=== PATIENT | female | born 1940 | race Caucasian/White ===

== ENCOUNTER → 2016-12-15 | Outpatient (CLI) | payer BC ==
[~2016-12-15] MED LIST: IOPAMIDOL (ISOVUE 370) 100 ML BTL IV ONE
== END ==
LOC: BMCIMAGING 10:25
PROVIDERS: ATTEND Family Medicine
DX: J40 Bronchitis, not specified as acute or chronic (principal); I25.10 Atherosclerotic heart disease of native coronary artery without angina pectoris; Z86.718 Personal history of other venous thrombosis and embolism
CPT/HCPCS: Q9967

== ENCOUNTER → 2016-12-26 | Outpatient (CLI) | payer BC | LOC: BMCIMAGING 11:41 | PROVIDERS: ATTEND Family Medicine | DX: J40 Bronchitis, not specified as acute or chronic (principal); I51.7 Cardiomegaly ==

== ENCOUNTER 2017-02-20 06:42 | Inpatient (IN) | payer BC ==
--- NOTE | 2017-02-20 07:06 | EDPHY ---
H & P Stated Complaint: abd pain HPI/ROS: CHIEF COMPLAINT: Abdominal pain HISTORY OF PRESENT ILLNESS: The patient is an anticoagulated 76 y/o female complaining of midabdominal pain that woke her from sleep early this morning about 5 hours ago. She has a history of significant coronary artery disease status post stenting and CABG. She developed polyuria and dysuria and was diagnosed with a UTI and started on Macrobid 3 days ago. She has used this antibiotic before without issue. She describes her pain as sharp and says it was initially constant, but then became intermittent. The pain is nonradiating. No prior similar sx. She denies chest pain, dyspnea, constipation, nausea, vomiting, fever, diarrhea. She has never had a colonoscopy. REVIEW OF SYSTEMS: Constitutional: No fever, no chills Eyes: No visual changes ENT: No sore throat Respiratory: No cough, no shortness of breath Cardiac: No chest pain Gastrointestinal: see HPI Genitourinary: No hematuria, no dysuria now Musculoskeletal: No leg pain or swelling Skin: No rash Neurological: No headache, no numbness, no weakness Psychiatric: No depression - Personal History Current Tetanus/Diphtheria Vaccine: Unsure Current Tetanus Diphtheria and Acellular Pertussis (TDAP): Unsure Tetanus Vaccine Date: 2003 - Medical/Surgical History PMH: PMH includes: 1. CAD status post 4 stents between [id number], CABG x4 in 2013 2. Pneumonia 3. UTIs 4. Appendectomy 5. Bilateral knee arthroscopy 6. DVT left leg - has been on Eliquis for 1 month Mechanic Chief: Dr. Vargas Prior medical records reviewed including admission 12/10/13 for chest pain Hx Asthma: No Hx Chronic Respiratory Disease: No Hx Diabetes: No Hx Cardiac Disease: Yes Hx Renal Disease: No Hx Cirrhosis: No Hx Alcoholism: No Hx HIV/AIDS: No Hx Splenectomy or Spleen Trauma: No Other PMH: Stents x4, HTN, CABG, L leg blood clot, - Social History Smoking Status: Never smoked Additional Social History: at bedside. Nonsmoker. - Physical Exam Exam: General Appearance: Alert, no distress Eyes: Pupils equal and round, no conjunctival pallor or injection ENT, Mouth: Mucous membranes moist Neck: Normal inspection Respiratory: Lungs are clear to auscultation Cardiovascular: Regular rate and rhythm Gastrointestinal: Abdomen is soft and diffusely tender across her lower abdomen. Neurological: A&O, nonfocal, normal gait Skin: Warm and dry, no rash Extremities: Nontender, no pedal edema Psychiatric: Mood and affect normal Constitutional: Initial Vital Signs Temperature (C) 36.8 C 02/20/17 06:49 Heart Rate 80 02/20/17 06:49 Respiratory Rate 16 02/20/17 06:49 Blood Pressure 172/95 H 02/20/17 06:49 O2 Sat (%) 90 L 02/20/17 06:49 O2 Delivery Mode Room Air Allergies/Adverse Reactions: Penicillins Allergy (Intermediate, Verified 02/20/17 06:46) Rash Sulfa (Sulfonamide Antibiotics) Allergy (Verified 02/20/17 06:46) Home Medications: Medication Instructions Recorded Metoprolol Tartrate [Lopressor 25 12.5 mg PO BID #30 tab 12/16/13 mg (*)] Apixaban [Eliquis] 5 mg PO BID 02/20/17 Nitrofurantoin Monohyd/M-Cryst 100 mg PO BID 02/20/17 [Macrobid 100 mg Capsule] Medical Decision Making - Diagnostics Imaging Results: Imaging Impressions Abdomen CT 02/20/17 07:16 Impression: 1. Closed loop small bowel obstruction or internal hernia in the left lower quadrant of the abdomen/pelvis within the distal ileum. 2. Abnormal endometrial thickening up to 12 mm. Consider ultrasound pelvis and endometrial biopsy when the patient's medical condition permits. 3. Atherosclerotic aorta without aneurysm. 4. L4-L5 degenerative lumbar spine and severe stenosis with degenerative anterolisthesis. Findings and recommendations discussed with Emergency Department physician, Gale Mann at 0900 hour, 02/20/2017. Final report concurs with initial preliminary interpretation. Imaging: Discussed imaging studies w/ call worker Radiologist, I viewed and interpreted images myself ED Course/Re-evaluation: This is a well-appearing, stoic 76 y/o female with a significant cardiac history and recently diagnosed UTI who presents with a 5-hour history of moderate abdominal pain. She has been on Macrobid for 3 days. She has diffuse lower abdominal tenderness elicited with palpation, but otherwise her exam is unremarkable. Presentation is suspicious for diverticulitis, so we will proceed with an abdominal CT. IV established, basic labs drawn, UA ordered. 6mg IV morphine and 4mg IV Zofran ordered as needed for pain. CT shows small bowel obstruction. Patient will require admission. No vomiting so an NG tube was not placed. The hospitalist was consulted for admission. Dr. Sauer accepts admission. Differential Diagnosis: Differential diagnosis includes though it is not limited to appendicitis, cholecystitis, diverticulitis, pyelonephritis, bowel perforation, small bowel obstruction. - Data Points Laboratory Results: Laboratory Results 02/20/17 07:00 02/20/17 07:00 02/20/17 02/20/17 07:00 07:00 WBC 6.05 10^3/uL 10^3/uL (3.80-9.50) RBC 5.41 10^6/uL H 10^6/uL (4.18-5.33) Hgb 14.7 g/dL g/dL (12.6-16.3) Hct 45.3 % % (38.0-47.0) MCV 83.7 fL fL (81.5-99.8) MCH 27.2 pg L pg (27.9-34.1) MCHC 32.5 g/dL g/dL (32.4-36.7) RDW 14.4 % % (11.5-15.2) Plt Count 239 10^3/uL 10^3/uL (150-400) MPV 10.2 fL fL (8.7-11.7) Neut % (Auto) 52.1 % % (39.3-74.2) Lymph % (Auto) 30.6 % % (15.0-45.0) Ada % (Auto) 10.4 % % (4.5-13.0) Eos % (Auto) 5.8 % % (0.6-7.6) Baso % (Auto) 0.8 % % (0.3-1.7) Nucleat RBC Rel Count 0.0 % % (0.0-0.2) Absolute Neuts (auto) 3.15 10^3/uL 10^3/uL (1.70-6.50) Absolute Lymphs (auto) 1.85 10^3/uL 10^3/uL (1.00-3.00) Absolute Monos (auto) 0.63 10^3/uL 10^3/uL (0.30-0.80) Absolute Eos (auto) 0.35 10^3/uL 10^3/uL (0.03-0.40) Absolute Basos (auto) 0.05 10^3/uL 10^3/uL (0.02-0.10) Absolute Nucleated RBC 0.00 10^3/uL 10^3/uL (0-0.01) Immature Gran % 0.3 % % (0.0-1.1) Immature Gran # 0.02 10^3/uL 10^3/uL (0.00-0.10) Sodium 143 mEq/L mEq/L (134-144) Potassium 4.4 mEq/L mEq/L (3.5-5.2) Chloride 111 mEq/L H mEq/L (97-110) Carbon Dioxide 21 mEq/l L mEq/l (22-31) Anion Gap 11 mEq/L mEq/L (8-16) BUN 11 mg/dL mg/dL (7-23) Creatinine 0.9 mg/dL mg/dL (0.6-1.0) Estimated GFR > 60 Glucose 94 mg/dL mg/dL (70-100) Calcium 9.6 mg/dL mg/dL (8.5-10.4) Medications Given: Discontinued Medications Sodium Chloride (Ns) 1,000 mls @ 0 mls/hr IV ONCE ONE; Wide Open PRN Reason: Protocol Stop: 02/20/17 09:11 Last Admin: 02/20/17 09:15 Dose: 1,000 mls Departure - Departure Disposition: [facility] Inpatient Acute Clinical Impression: Small bowel obstruction Condition: Fair Report Scribed for: Gale Mann Report Scribed by: Reanna Estevez Date of Report: 02/20/17 Time of Report: 06:58 Physician Review and Approval Statement: 02/20/17 06:58 Portions of this note were transcribed by a medical claims assistant. I personally performed a history, physical exam, medical decision making, and confirmed accuracy of information the transcribed note.
[2017-02-20 07:39] LABS: % IMMATURE GRANULYOCYTES 0.3 % (0.0-1.1); ABSOLUTE IMMATURE GRANULOCYTES 0.02 10^3/uL (0.00-0.10); ADD DIFF? NO; ADD MORPH? NO; ADD SCAN? NO; ATYPICAL LYMPHOCYTE FLAG 0 (0-99); FRAGMENT RBC FLAG 0 (0-99); HEMATOCRIT 45.3 % (38.0-47.0); HEMOGLOBIN 14.7 g/dL (12.6-16.3); LEFT SHIFT FLG 0 (0-99); LIPEMIA HEMOLYSIS FLAG 80 (0-99); MEAN CELL HEMOGLOBIN 27.2 pg (27.9-34.1); MEAN CELL HEMOGLOBIN CONCENTR. 32.5 g/dL (32.4-36.7); MEAN CELL VOLUME 83.7 fL (81.5-99.8); MEAN PLATELET VOLUME 10.2 fL (8.7-11.7); PLATELET CLUMPS FLAG 10 (0-99); PLATELET COUNT 239 10^3/uL (150-400); RED BLOOD CELL COUNT 5.41 10^6/uL (4.18-5.33); RED CELL DISTRIBUTION WIDTH 14.4 % (11.5-15.2)
[2017-02-20 07:45] LABS: ANION GAP 11 mEq/L (8-16); CALCIUM 9.6 mg/dL (8.5-10.4); CARBON DIOXIDE 21 mEq/l (22-31); CHLORIDE 111 mEq/L (97-110); CREATININE 0.9 mg/dL (0.6-1.0); GLOMERULAR FILTRATION RATE > 60; GLUCOSE 94 mg/dL (70-100); POTASSIUM 4.4 mEq/L (3.5-5.2); SODIUM 143 mEq/L (134-144)
[2017-02-20] MEDS ORDERED: IOPAMIDOL (ISOVUE-300) 100 ML BTL ONE (08:20)
[2017-02-20] MEDS ORDERED: NS 1,000 ML IV ONE (09:10)
[2017-02-20] MEDS ORDERED: ONDANSETRON 4 MG/2 ML VIAL IVP ONE (09:10)
[2017-02-20 10:11] LABS: COLOR YELLOW; LEUKOCYTE ESTERASE,URINE NEGATIVE (NEGATIVE); NITRITE,URINE NEGATIVE (NEGATIVE)
[2017-02-20] MEDS ORDERED: ONDANSETRON DISINTEGRATING 4 MG TAB PO PRN (10:12)
[2017-02-20] MEDS ORDERED: ONDANSETRON 4 MG/2 ML VIAL IVP PRN (10:12)
[2017-02-20] MEDS ORDERED: ACETAMINOPHEN 325 MG TAB PO PRN (10:12)
[2017-02-20] MEDS: D5W 1/2 NS 1,000 ML IV SCH (12:00)
--- NOTE | 2017-02-20 14:02 | GCON ---
[f rep st] CONSULTATION DATE OF CONSULTATION: 02/20/2017 REFERRING PHYSICIAN: Marilee Sauer MD REASON FOR EVALUATION: Small bowel obstruction. HISTORY OF PRESENT ILLNESS: This is a 76-year-old female with a significant history for remote open appendectomy through a right lower quadrant paramedian incision. She presents to the hospital [facility] with left lower quadrant abdominal pain starting last evening. Her last bowel movement was yester day afternoon. She has not passed flatus since. She denies nausea or vomiting. Because of the wor sening pain, she presented to the emergency room earlier this morning for further work up. CT imaging was performed disclosing findings consistent with a small bowel obstruction. She was adm itted to the medical service for further treatment and evaluation. Of significance, the patient has a history for a recent left leg DVT, spontaneous, starting a few months ago. She has been maintain ed on Eliquis. She also was treated for urinary infection with nitrofurantoin starting last Sunday . Her urinary complaints have completely resolved. She denies any prior antecedent history of hung l obstruction. She has never had a prior colonoscopy. PAST MEDICAL HISTORY: Coronary artery disease status post PTCA, CABG, hypertension, left leg DVT. PAST SURGICAL HISTORY: Open appendectomy, CABG. MEDICATIONS: Metoprolol, Eliquis, nitrofurantoin. ALLERGIES: No known drug allergies. SOCIAL HISTORY: No alcohol. No tobacco. She is . 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 FAMILY HISTORY: Noncontributory. REVIEW OF SYSTEMS: Notable for above GI and hematologic complaints, otherwise negative 10-point rev iew of systems. PHYSICAL EXAMINATION: VITAL SIGNS: Temperature 36.5, blood pressure 152/90, pulse 65, respirations 20. GENERAL: Patient is alert, appropriate, comfortable. HEENT: Anicteric. No cervical or supr aclavicular lymphadenopathy. HEART: Regular. LUNGS: Clear. ABDOMEN: Soft, distended, well-heal ed right lower quadrant paramedian incision without hernias. EXTREMITIES: Mild left lower quadrant tenderness without rebound or guarding. Notable chronic left leg swelling. No right leg swelling 2+ pedal pulses bilaterally. NEUROLOGIC: Alert appropriate x3. SKIN: Normal. LABORATORY DATA: White count 6, hemoglobin 15, platelets 240. Electrolytes within reference range. Urinalysis normal. IMPRESSION: 1. Partial small bowel obstruction, likely adhesive in nature. 2. Recent spontaneous left leg DVT. 3. Recent urinary tract infection. PLAN: 1. CT imaging was directly reviewed on PACS. Patient is clinically without evidence of peritoneal findings or clinical concern for closed loop obstruction at this moment. Will continue with bowel r est and IV fluid resuscitation. Nasogastric tube was not inserted in the emergency room due to the patient's lack of nausea and vomiting. Will try to manage without nasogastric decompression. If th e patient develops discomfort she is aware that this will need to be placed. If no clinical resolut ion within 48-72 hours consideration for laparoscopic exploration will be entertained at that time. 2. Will hold Eliquis therapy, bridge with Lovenox in case surgery indicated. 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 3. The patient's family inquired about continuation of her nitrofurantoin. This can likely be disc ontinued given a 5 day completed course with a current normal urinalysis. Care plan was discussed with Dr. Sauer. /[id number]/MODL
[2017-02-20] MEDS: ENOXAPARIN 40 MG/0.4 ML SYR SC SCH (16:59)
[2017-02-20] MEDS: PANTOPRAZOLE SODIUM 40 MG in NS 100 ML IV SCH (17:31)
--- NOTE | 2017-02-20 18:58 | PDGENHP ---
History and Physical - Chief Complaint abdominal pain - History of Present Illness Was feeling well prior to last nt when awoke with severe abd pain. No n/v/d/ fever/CP/SOB. Dx with UTI last week, has been on macrobid. Says pain OK with meds currently. No prev hx similar pain, SBO. Says no prev colonoscopy. History Information - Allergies/Home Medication List Allergies/Adverse Reactions: Penicillins Allergy (Intermediate, Verified 02/20/17 06:46) Rash Sulfa (Sulfonamide Antibiotics) Allergy (Verified 02/20/17 06:46) Home Medications: Apixaban [Eliquis] 5 mg PO BID 02/20/17 [Last Taken 02/19/17 21:00] Nitrofurantoin Monohyd/M-Cryst [Macrobid 100 mg Capsule] 100 mg PO BID 02/20/17 [Last Taken 02/19/17 21:00] I have personally reviewed and updated: medical history, social history, surgical history - Past Medical History Additional medical history: CAD (s/p stents, Dr Fitch), L leg DVT 2017, UTI and PNAs prev. PCP Dr Araiza - Surgical History Reports: appendectomy, coronary stent Additional surgical history: B knee surgeries - Social History Smoking Status: Never smoked Alcohol Use: Rarely Drug Use: None Additional social history: - anniversary tomorrow, 55 yrs! Review of Systems ROS: 10pt was reviewed & negative except for what was stated in HPI & below Constitutional: Denies: fever Cardiac: Denies: chest pain Respiratory: Denies: cough, shortness of breath Gastrointestinal: Denies: black stools, constipation, diarrhea Genitourinary: Denies: flank pain Physical Exam Temp Pulse Resp BP Pulse Ox 97.8 F 68 18 152/82 H 88 L 02/20/17 15:04 02/20/17 15:04 02/20/17 15:04 02/20/17 15:04 02/20/17 15:04 Constitutional: no apparent distress, appears nourished, not in pain, obese Eyes: PERRL, anicteric sclera, EOMI Ears, Nose, Mouth, Throat: moist mucous membranes, hearing normal, ears appear normal Cardiovascular: regular rate and rhythym, no murmur, rub, or gallop, No edema Respiratory: no respiratory distress, no rales or rhonchi, clear to auscultation Gastrointestinal: normoactive bowel sounds, no palpable masses, tenderness ( mild TTP LUQ, otw non tender), No guarding, No rebound, No distension Musculoskeletal: full muscle strength Neurologic: AAOx3, CN II-XII Intact Psychiatric: interacting appropriately, not anxious, not encephalopathic, thought process linear Lab Data & Imaging Review 02/21/17 04:36 02/21/17 04:36 WBC 6.05 10^3/uL (3.80-9.50) 02/20/17 07:00 RBC 5.41 10^6/uL (4.18-5.33) H 02/20/17 07:00 Hgb 14.7 g/dL (12.6-16.3) 02/20/17 07:00 Hct 45.3 % (38.0-47.0) 02/20/17 07:00 MCV 83.7 fL (81.5-99.8) 02/20/17 07:00 MCH 27.2 pg (27.9-34.1) L 02/20/17 07:00 MCHC 32.5 g/dL (32.4-36.7) 02/20/17 07:00 RDW 14.4 % (11.5-15.2) 02/20/17 07:00 Plt Count 239 10^3/uL (150-400) 02/20/17 07:00 MPV 10.2 fL (8.7-11.7) 02/20/17 07:00 Neut % (Auto) 52.1 % (39.3-74.2) 02/20/17 07:00 Lymph % (Auto) 30.6 % (15.0-45.0) 02/20/17 07:00 [place] % (Auto) 10.4 % (4.5-13.0) 02/20/17 07:00 Eos % (Auto) 5.8 % (0.6-7.6) 02/20/17 07:00 Baso % (Auto) 0.8 % (0.3-1.7) 02/20/17 07:00 Nucleat RBC Rel Count 0.0 % (0.0-0.2) 02/20/17 07:00 Absolute Neuts (auto) 3.15 10^3/uL (1.70-6.50) 02/20/17 07:00 Absolute Lymphs (auto) 1.85 10^3/uL (1.00-3.00) 02/20/17 07:00 Absolute Monos (auto) 0.63 10^3/uL (0.30-0.80) 02/20/17 07:00 Absolute Eos (auto) 0.35 10^3/uL (0.03-0.40) 02/20/17 07:00 Absolute Basos (auto) 0.05 10^3/uL (0.02-0.10) 02/20/17 07:00 Absolute Nucleated RBC 0.00 10^3/uL (0-0.01) 02/20/17 07:00 Immature Gran % 0.3 % (0.0-1.1) 02/20/17 07:00 Immature Gran # 0.02 10^3/uL (0.00-0.10) 02/20/17 07:00 Sodium 143 mEq/L (134-144) 02/20/17 07:00 Potassium 4.4 mEq/L (3.5-5.2) 02/20/17 07:00 Chloride 111 mEq/L (97-110) H 02/20/17 07:00 Carbon Dioxide 21 mEq/l (22-31) L 02/20/17 07:00 Anion Gap 11 mEq/L (8-16) 02/20/17 07:00 BUN 11 mg/dL (7-23) 02/20/17 07:00 Creatinine 0.9 mg/dL (0.6-1.0) 02/20/17 07:00 Estimated GFR > 60 02/20/17 07:00 Glucose 94 mg/dL (70-100) 02/20/17 07:00 Calcium 9.6 mg/dL (8.5-10.4) 02/20/17 07:00 Urine Color YELLOW 02/20/17 10:02 Urine Appearance CLEAR 02/20/17 10:02 Urine pH 6.0 (5.0-7.5) 02/20/17 10:02 Ur Specific [place] 1.031 (1.002-1.030) H 02/20/17 10:02 Urine Protein NEGATIVE (NEGATIVE) 02/20/17 10:02 Urine Ketones NEGATIVE (NEGATIVE) 02/20/17 10:02 Urine Blood NEGATIVE (NEGATIVE) 02/20/17 10:02 Urine Nitrate NEGATIVE (NEGATIVE) 02/20/17 10:02 Urine Bilirubin NEGATIVE (NEGATIVE) 02/20/17 10:02 Urine Urobilinogen NEGATIVE EU (0.2-1.0) 02/20/17 10:02 Ur Leukocyte Esterase NEGATIVE (NEGATIVE) 02/20/17 10:02 Urine Glucose NEGATIVE (NEGATIVE) 02/20/17 10:02 Assessment & Plan Assessment: 1.Small bowel obstruction (Acute) -bowel rest, IVF, hold off on NG tube for now -Appreciate Dr Dumont consult, care plan revwd with him 2. hx DVT/CAD -home meds except hold eliquis in case a procedure is needed 3. DVT prophy lovenox (hold eliquis for now) 4. UTI -continue with po macrobid for [address] Araiza, FULL CODE (for now, but revwd with her and , encouraged to complete MOST form with PCP) dispo- antiipate > 2 mdnts due to complexity/higher risk conditions, and possible surgical intervention if SBO not resolving
[2017-02-20] MEDS: METOPROLOL TARTRATE 25 MG TAB PO SCH (20:40)
[2017-02-20] MEDS: NITROFURANTOIN MACROBID 100 MG CAP PO SCH (20:40)
[2017-02-21] MEDS: D5W 1/2 NS 1,000 ML IV SCH (02:24)
[2017-02-21 04:01] VITALS: TEMP 98; O2SAT 92
[2017-02-21 04:43] LABS: % IMMATURE GRANULYOCYTES 0.2 % (0.0-1.1); ABSOLUTE IMMATURE GRANULOCYTES 0.01 10^3/uL (0.00-0.10); ADD DIFF? NO; ADD MORPH? NO; ADD SCAN? NO; ATYPICAL LYMPHOCYTE FLAG 10 (0-99); FRAGMENT RBC FLAG 0 (0-99); HEMOGLOBIN 13.7 g/dL (12.6-16.3); LEFT SHIFT FLG 0 (0-99); LIPEMIA HEMOLYSIS FLAG 80 (0-99); MEAN CELL HEMOGLOBIN 27.3 pg (27.9-34.1); MEAN CELL HEMOGLOBIN CONCENTR. 32.6 g/dL (32.4-36.7); MEAN CELL VOLUME 83.8 fL (81.5-99.8); MEAN PLATELET VOLUME 9.8 fL (8.7-11.7); PLATELET CLUMPS FLAG 0 (0-99); PLATELET COUNT 202 10^3/uL (150-400); RED BLOOD CELL COUNT 5.01 10^6/uL (4.18-5.33); RED CELL DISTRIBUTION WIDTH 14.4 % (11.5-15.2)
[2017-02-21 05:21] LABS: ANION GAP 9 mEq/L (8-16); CARBON DIOXIDE 22 mEq/l (22-31); CHLORIDE 110 mEq/L (97-110); CREATININE 0.8 mg/dL (0.6-1.0); GLOMERULAR FILTRATION RATE > 60; GLUCOSE 102 mg/dL (70-100); MAGNESIUM 2.2 mg/dL (1.6-2.3); POTASSIUM 3.9 mEq/L (3.5-5.2); SODIUM 141 mEq/L (134-144)
[2017-02-21 07:28] VITALS: BP 126/75; PULSE 66; RESP 16
[2017-02-21] MEDS: ENOXAPARIN 40 MG/0.4 ML SYR SC SCH (08:11)
[2017-02-21] MEDS: NITROFURANTOIN MACROBID 100 MG CAP PO SCH (08:11)
[2017-02-21] MEDS: METOPROLOL TARTRATE 25 MG TAB PO SCH (08:12)
[2017-02-21] MEDS: PANTOPRAZOLE SODIUM 40 MG in NS 100 ML IV SCH (08:29)
--- NOTE | 2017-02-21 11:59 | SOAPPROG ---
SOAP Progress Note Assessment/Plan: Assessment/Plan: 76 yo woman with pSBO now passing gas and bm liquid stool No abd pain Ambulatory Tolerating liquid diet AA&O CTA Abd soft nt, nd No edema Okay to d/c by surgical criteria. F/U prn with Gen surgery colonoscopy as outpt with gen surg or GI 02/21/17 11:57 Objective: Vital Signs Temp Pulse Resp BP Pulse Ox 36.7 C 66 16 126/75 H 92 02/21/17 07:27 02/21/17 07:27 02/21/17 07:27 02/21/17 07:27 02/21/17 07:27 Laboratory Results 02/21/17 04:36 02/21/17 04:36 02/20/17 02/21/17 02/22/17 05:59 05:59 05:59 Intake Total 1059 Balance 1059 ICD10 Worksheet Patient Problems: Problems Problem Status Onset Small bowel obstruction Acute Atrial fibrillation Acute Coronary artery disease Acute History of coronary artery stent placement Acute Hyperlipidemia Acute Hypertension Acute
--- NOTE | 2017-02-22 08:36 | PDDCSUM ---
Discharge Summary Discharge Summary: dictated
--- NOTE | 2017-02-22 12:43 | GDS ---
[f rep st] DISCHARGE SUMMARY ADMISSION DIAGNOSES: 1. Small bowel obstruction. 2. History of coronary artery disease. 3. History of deep venous thrombosis. DISCHARGE DIAGNOSES: 1. Right small bowel obstruction, resolved. 2. History of coronary artery disease. 3. History of deep venous thrombosis. PROCEDURES: None. CONSULTATION: General Surgery, Chris Dumont MD, Luis Ceja MD. HOSPITAL COURSE: 1. Small bowel obstruction: The patient was admitted because of acute onset of abdominal pain and w as found to have a small bowel obstruction on a CT scan. She was given IV fluids, n.p.o. status, mojgan n medication as needed. Within a few hours of admission, symptoms were improving considerably, and a consultation with General Surgery was requested. On the day of discharge, she was tolerating clears without difficulty, and she was very eager to go home as it was her anniversary that emir bajwa. Instructed her on a very bland clear diet and should advance very slowly as tolerated. She was d ischarged home to follow up with her primary care provider, Dr. Tavares Araiza. If, at any time, she h as recurrent abdominal pain, fever, vomiting, diarrhea, bloody stool, she should return immediately to the emergency department. 2. Coronary artery disease: Vital signs were stable, and home medications were continued throughout her stay. No cardiac evaluation was evaluated at this hospital stay. 3. History of DVT: She is currently on Eliquis as an outpatient. This was held throughout her stay because of possible surgical intervention. She was given Lovenox. She is to continue with Eliquis as an outpatient and follow up with her primary care provider. DISCHARGE INSTRUCTIONS: Of note, she denies having previous colonoscopy so could consider this in t he future and should discuss with her primary care provider. Had a discussion regarding resuscitatio n status and strongly encouraged her to review the MOLST form with her primary care provider. She is asked to follow up with Dr. Araiza within a few days after discharge. MEDICATION LIST: Unchanged from home medications. /[id number]/MODL
== END 2017-02-21 13:36 | disposition home or self-care (01) | DRG 390 ==
LOC: OBSVTOIN 10:15 → F3E 11:05
PROVIDERS: ADMIT Family Medicine; ATTEND Family Medicine
DX: K56.60 Unspecified intestinal obstruction (principal); I25.10 Atherosclerotic heart disease of native coronary artery without angina pectoris; I10 Essential (primary) hypertension; Z86.718 Personal history of other venous thrombosis and embolism; Z79.01 Long term (current) use of anticoagulants; Z95.5 Presence of coronary angioplasty implant and graft; Z95.1 Presence of aortocoronary bypass graft; Z87.440 Personal history of urinary (tract) infections
CPT/HCPCS: J1650; Q9967

== ENCOUNTER → 2017-03-12 | Outpatient (CLI) | payer BC | LOC: CIMAGING 14:44 | PROVIDERS: ATTEND Internal Medicine | DX: R93.8 Abnormal findings on diagnostic imaging of other specified body structures (principal) | CPT/HCPCS: 76856-PO ==

== ENCOUNTER 2017-05-21 09:57 | Inpatient (IN) | payer BC ==
--- NOTE | 2017-05-21 10:40 | EDPHY ---
General - Diagnostics EKG: I reviewed patient's EKG. See [facility] system for interpretation - History Smoking Status: Never smoked Narrative: CHIEF COMPLAINT: Lower extremity swelling and pain, concern for DVT HISTORY OF PRESENT ILLNESS: Patient complains of left lower extremity pain and swelling x1 day. Gradual onset. Constant duration. The pain was moderate to severe yesterday in the left calf. It has improved today. The concern is that she has been treated for DVT over the past 6 months and stopped her Eliquis yesterday. Pain in her left leg is the same as it was with previous diagnosis of DVT in the same leg pain she has no redness. No warmth. No complaints distal to the calf. No chest pain. No shortness of breath. No history of congestive heart failure. No other associated complaints or modifying factors. REVIEW OF SYSTEMS: Ten systems reviewed and are negative unless otherwise noted in the HPI PCP: Dr. Araiza SPECIALISTS: Dr. Vargas PAST MEDICAL HISTORY: Hypertension, coronary artery disease, small-bowel obstruction, osteoarthritis PAST SURGICAL HISTORY: CABG with quadruple bypass SOCIAL HISTORY: Nonsmoker. No alcohol. Lives here in [place] with her spouse FAMILY HISTORY: Noncontributory EXAMINATION General Appearance: Alert, no distress Head: normocephalic, atraumatic Eyes: Pupils equal and round, no conjunctival pallor or injection ENT, Mouth: Mucous membranes moist Neck: Normal inspection, supple, non-tender Respiratory: Lungs are clear to auscultation. No wheezing, rhonchi or crackles Cardiovascular: Regular rate and rhythm. No murmur Gastrointestinal: Abdomen is soft and nontender Back: non-tender, no bony abnormalities Neurological: A&O, nonfocal, normal gait Skin: Warm and dry, no rash Extremities: Tenderness to the left calf. Left calf is edematous and asymmetric to the right. There is no erythema. There is pain with passive dorsiflexion of the foot. No palpable cord. Range of motion of the lower extremities is symmetric. Psychiatric: Mood and affect normal DIFFERENTIAL DIAGNOSES: Including but not limited to DVT, peripheral edema, muscular cramp, atherosclerosis MDM: 10:35 a.m. Left lower extremity swelling, pain and same sensation she had with previous DVT. Stop Eliquis yesterday after 6 months treatment of lower extremity DVT. She has no chest pain or shortness of breath. Vital signs were well within normal limits. I have ordered baseline laboratory studies as well as an ultrasound of the left lower extremity. She is in no acute distress. No evidence of compartment syndrome or cellulitis. 11:45 a.m. Notified by radiologist Dr. Zayas. There is extensive DVT of the left lower extremity. This started at the distal iliac vein and extends into the common femoral vein. Interventional radiologist will be consulted. I have re- evaluated the patient and made her aware of these findings. She still has no complaints of chest pain or shortness of breath. 12:15 p.m. Case discussed at length with Dr. White. We discussed her history, examination and ultrasound findings. We discussed possibility of interventional radiology intervention. He would like the patient to have a venogram with the possibility of catheter directed thrombolysis. The patient is agreeable with this. Coag study originally showed results with PT and INR, but then this was changed to a rejected value. Thus we will obtain a repeat coagulopathy study. Dr. White has also requested a 1 time dose of heparin 5000 IV. He does not want the patient to receive IV infusion. I will contact hospitalist for admission. 12:28 p.m. Case discussed with hospitalist Dr. Lakhani. Patient will be admitted to the service of Dr. Harry. She is admitted in stable condition. 2:[address] White has evaluated the patient in the emergency department. He discussed risks, benefits and alternatives of venogram with possible catheter placement. The patient at 1st want to take better. She has made her decision. She has declined to have the catheter directed thrombolysis. She will proceed with the venogram. At this point I have changed bed from ICU to a Medr bed as she will not require ICU bed without higher involvement. I will contact the admitting physician Dr. Harry. She remained stable with no chest pain or shortness of breath. (Aguilar Rushing) - Diagnostics Imaging Results: Imaging Impressions Extremity Venous Study 05/21/17 10:35 Impression: DVT extending from the distal left external iliac vein through the posterior tibial veins. Findings discussed with Aguilar Rushing 05/21/2017 at 11:44. Discussion: I did not see this patient while she was in the emergency department. However her care was discussed with the PA while the patient was in the department. I agree with treatment plan and management (Sterling Miranda) - Objective Vital Signs: Initial Vital Signs Temperature (C) 36.5 C 05/21/17 10:01 Heart Rate 78 05/21/17 10:01 Respiratory Rate 16 05/21/17 10:01 Blood Pressure 160/88 H 05/21/17 10:01 O2 Sat (%) 93 05/21/17 10:01 O2 Delivery Mode Room Air Allergies/Adverse Reactions: Penicillins Allergy (Intermediate, Verified 02/20/17 06:46) Rash Sulfa (Sulfonamide Antibiotics) Allergy (Verified 02/20/17 06:46) Home Medications: Medication Instructions Recorded Metoprolol Tartrate [Lopressor 25 12.5 mg PO BID #30 tab 12/16/13 mg (*)] Apixaban [Eliquis] 2.5 mg PO BID 05/21/17 Laboratory Results: Laboratory Results 05/21/17 10:55 05/21/17 10:55 05/21/17 05/21/17 05/21/17 10:55 10:55 10:55 WBC 7.40 10^3/uL 10^3/uL (3.80-9.50) RBC 4.98 10^6/uL 10^6/uL (4.18-5.33) Hgb 13.7 g/dL g/dL (12.6-16.3) Hct 41.6 % % (38.0-47.0) MCV 83.5 fL fL (81.5-99.8) MCH 27.5 pg L pg (27.9-34.1) MCHC 32.9 g/dL g/dL (32.4-36.7) RDW 14.5 % % (11.5-15.2) Plt Count 145 10^3/uL L 10^3/uL (150-400) PT REJ INR REJ APTT REJ Sodium 137 mEq/L mEq/L (134-144) Potassium 3.6 mEq/L mEq/L (3.5-5.2) Chloride 104 mEq/L mEq/L (97-110) Carbon Dioxide 23 mEq/l mEq/l (22-31) Anion Gap 10 mEq/L mEq/L (8-16) BUN 13 mg/dL mg/dL (7-23) Creatinine 1.0 mg/dL mg/dL (0.6-1.0) Estimated GFR 54 Glucose 97 mg/dL mg/dL (70-100) Calcium 9.4 mg/dL mg/dL (8.5-10.4) NT-Pro-B Natriuret Pep 433 pg/mL pg/mL (0-450) Medications Given: Discontinued Medications Heparin Sodium (Porcine) (Heparin Sodium) 5,000 unit IVP EDNOW ONE Stop: 05/21/17 12:20 Last Admin: 05/21/17 12:40 Dose: 5,000 unit Departure - Departure Disposition: [facility] Inpatient Acute Clinical Impression: Iliac DVT (deep venous thrombosis), Left leg DVT Condition: Good
[2017-05-21 11:07] LABS: HEMATOCRIT 41.6 % (38.0-47.0); HEMOGLOBIN 13.7 g/dL (12.6-16.3); MEAN CELL HEMOGLOBIN 27.5 pg (27.9-34.1); MEAN CELL HEMOGLOBIN CONCENTR. 32.9 g/dL (32.4-36.7); MEAN CELL VOLUME 83.5 fL (81.5-99.8); RED BLOOD CELL COUNT 4.98 10^6/uL (4.18-5.33); RED CELL DISTRIBUTION WIDTH 14.5 % (11.5-15.2)
[2017-05-21 11:23] LABS: ANION GAP 10 mEq/L (8-16); CALCIUM 9.4 mg/dL (8.5-10.4); CARBON DIOXIDE 23 mEq/l (22-31); CHLORIDE 104 mEq/L (97-110); GLOMERULAR FILTRATION RATE 54; GLUCOSE 97 mg/dL (70-100); POTASSIUM 3.6 mEq/L (3.5-5.2); SODIUM 137 mEq/L (134-144)
[2017-05-21] MEDS ORDERED: HEPARIN 30000 UNIT/30 ML IVP ONE (12:19)
[2017-05-21] MEDS ORDERED: HEPARIN 10,000 UNIT/10 ML MDV ONE (12:38)
[2017-05-21 12:49] LABS: APTT 25.2 SEC (23.0-38.0); INR 1.08 (0.83-1.16); PROTIME(PATIENT) 13.9 SEC (12.0-15.0)
[2017-05-21] MEDS ORDERED: fentaNYL 100 MCG/2 ML INJ ONE (15:01)
[2017-05-21] MEDS ORDERED: HEPARIN/DEXTROSE 25,000 UNIT/500 ML BAG ONE (15:33)
[2017-05-21] MEDS ORDERED: ONDANSETRON DISINTEGRATING 4 MG TAB PO PRN (15:38)
[2017-05-21] MEDS ORDERED: PROMETHAZINE HCL 25 MG/ML INJ IVP PRN (15:38)
[2017-05-21] MEDS ORDERED: oxyCODONE IR 5 MG TAB PO PRN (15:38)
[2017-05-21] MEDS ORDERED: HEPARIN 10,000 UNIT/10 ML MDV IVP PRN (15:38)
[2017-05-21] MEDS ORDERED: ONDANSETRON 4 MG/2 ML VIAL IVP PRN (15:38)
[2017-05-21] MEDS ORDERED: HEPARIN/DEXTROSE 500 ML IV SCH ×2 (15:45→16:00)
--- NOTE | 2017-05-21 15:49 | POSTOPPROG ---
Post Op Note Date of Operation: 05/21/17 Surgeon: Martin White Anesthesia: IV Sedation Pre-op Diagnosis: DVT, left leg Post-op Diagnosis: Extensive acute DVT, left leg and hemipelvis Indication: Pain and swelling. Previous DVT 6 mos. ago. Procedure: Initiation of catheter directed venous thrombolysis, left iliofemoral Findings: Extensive acute DVT. EKOS infusion catheter in good position. Inf/Abcess present in the surg proc area at time of surgery?: No EBL: Minimal Complications: 0
[2017-05-21] MEDS ORDERED: ALTEPLASE 5 MG in NS 100 ML IV SCH (16:00)
--- NOTE | 2017-05-21 16:20 | PDGENHP ---
History and Physical - Chief Complaint Acute leg pain - History of Present Illness Primary care provider: Dr. Araiza Primary program/music director: Dr. Vargas HPI: 76-year-old female presenting with acute leg pain located in her left lower extremity with associated edema, onset of symptoms 1 day ago, gradually increasing and duration constant, characterized as moderate to severe pain in that left calf. She discontinued her eliquis at the direction of Dr. Vargas two days ago (did not have a d-dimer or US), after being on reduced dosage 2.5 bid x 6 months. On the day prior to this admission, she spent a considerable amount of time on her feet, playing a round of golf w/ . She has not had any bleeding complications, and is not on any anti-platelet medications. History Information - Allergies/Home Medication List Allergies/Adverse Reactions: Penicillins Allergy (Intermediate, Verified 02/20/17 06:46) Rash Sulfa (Sulfonamide Antibiotics) Allergy (Verified 02/20/17 06:46) Home Medications: Apixaban [Eliquis] 2.5 mg PO BID 05/21/17 [Last Taken 05/19/17] I have personally reviewed and updated: family history, medical history, social history, surgical history - Past Medical History hypertension Additional medical history: CAD (s/p CABG), L leg DVT 2016, UTI and PNAs prev, SBO 03/05, OA - Surgical History Reports: appendectomy, coronary bypass surgery Additional surgical history: B knee surgeries - Family History Additional family history: no family hx of VTE - Social History Smoking Status: Never smoked Alcohol Use: None Drug Use: None Additional social history: ambulatory, no lengthy periods of sitting Review of Systems Review of Systems: ROS: 10pt was reviewed & negative except for what was stated in HPI & below Cardiac: Reports: edema (LLE) Muscolosketal: Reports: other (pain in LLE) Physical Exam Physical Exam: Temp Pulse Resp BP Pulse Ox 36.5 C 71 16 152/94 H 92 05/21/17 10:01 05/21/17 14:11 05/21/17 14:11 05/21/17 14:11 05/21/17 14:11 Constitutional: no apparent distress, appears nourished, not in pain, obese, No uncomfortable Eyes: PERRL, anicteric sclera, EOMI Ears, Nose, Mouth, Throat: moist mucous membranes, hearing normal, ears appear normal, no oral mucosal ulcers Cardiovascular: regular rate and rhythym, no murmur, rub, or gallop, No edema Peripheral Pulses: 2+: dorsalis-pedis (L) Respiratory: no respiratory distress, no rales or rhonchi, clear to auscultation Gastrointestinal: normoactive bowel sounds, soft, non-tender abdomen, no palpable masses, No distension Skin: other (no ecchymoses/erythema at the LLE, small dired blood at cath site) Neurologic: AAOx3, sensation intact bilaterally (feet), No weakness (5/5 motor LLE distally), No facial droop Psychiatric: interacting appropriately, not anxious, not encephalopathic, thought process linear Lab Data & Imaging Review 05/21/17 10:55 05/21/17 10:55 WBC 7.40 10^3/uL (3.80-9.50) 05/21/17 10:55 RBC 4.98 10^6/uL (4.18-5.33) 05/21/17 10:55 Hgb 13.7 g/dL (12.6-16.3) 05/21/17 10:55 Hct 41.6 % (38.0-47.0) 05/21/17 10:55 MCV 83.5 fL (81.5-99.8) 05/21/17 10:55 MCH 27.5 pg (27.9-34.1) L 05/21/17 10:55 MCHC 32.9 g/dL (32.4-36.7) 05/21/17 10:55 RDW 14.5 % (11.5-15.2) 05/21/17 10:55 Plt Count 145 10^3/uL (150-400) L 05/21/17 10:55 PT 13.9 SEC (12.0-15.0) 05/21/17 12:30 INR 1.08 (0.83-1.16) 05/21/17 12:30 APTT 25.2 SEC (23.0-38.0) 05/21/17 12:30 Sodium 137 mEq/L (134-144) 05/21/17 10:55 Potassium 3.6 mEq/L (3.5-5.2) 05/21/17 10:55 Chloride 104 mEq/L (97-110) 05/21/17 10:55 Carbon Dioxide 23 mEq/l (22-31) 05/21/17 10:55 Anion Gap 10 mEq/L (8-16) 05/21/17 10:55 BUN 13 mg/dL (7-23) 05/21/17 10:55 Creatinine 1.0 mg/dL (0.6-1.0) 05/21/17 10:55 Estimated GFR 54 05/21/17 10:55 Glucose 97 mg/dL (70-100) 05/21/17 10:55 Calcium 9.4 mg/dL (8.5-10.4) 05/21/17 10:55 NT-Pro-B Natriuret Pep 433 pg/mL (0-450) 05/21/17 10:55 Assessment & Plan Assessment: 76-year-old female presenting with acute, recurrent left lower extremity DVT Plan: 1. Deep venous thrombosis. Acute, recurrent, new problem this provider, further workup is indicated. Occurring in the setting DVT 6 months ago with recent discontinuation of Eliquis, ultrasound demonstrating DVT extensively from the cath into the pelvis -discussed with Dr. Gigi Harry, she has informed me that the patient is undergoing interventional radiology procedure -reviewed procedure note by Dr. Martin White, he reports that the patient has had EKOS placed -defer timing of reassessment ultrasound or venogram to Interventional Radiology -monitor in intensive care unit given high risk medication -will require re-initiation of systemic anticoagulation once patient's lytic therapy has completed -will get heme consultation w/ Dr. Juan, as patient will likely require lifelong anticoagulation, or, at the very least, careful reassessment of recurrence/persistence risk prior to ever stopping Rx in future 2. Hypertension. Continue metop now 3. Coronary artery disease. Chronic, continue metop, not on ASA as she's on blood thinners 4. History of small-bowel obstruction. Reviewed outside records including [address] Marilee Sauer, she describes non operative management of SBO, Dr. Dumont has been consulted -will place patient on bowel regimen to avoid constipation Diet. Cardiac Prophylaxis. High risk patient, currently on lytic therapy Code. Full, NPO after MN for repeat procedure Disposition. Anticipated discharge 05/22/2017, pending stabilization of above.
[2017-05-21] MEDS ORDERED: IOPAMIDOL (ISOVUE-300) 100 ML BTL ONE (16:29)
[2017-05-21 18:30] LABS: % IMMATURE GRANULYOCYTES 0.5 % (0.0-1.1); ABSOLUTE IMMATURE GRANULOCYTES 0.04 10^3/uL (0.00-0.10); ADD DIFF? NO; ADD MORPH? NO; ADD SCAN? NO; ATYPICAL LYMPHOCYTE FLAG 10 (0-99); FRAGMENT RBC FLAG 0 (0-99); HEMATOCRIT 41.5 % (38.0-47.0); HEMOGLOBIN 13.8 g/dL (12.6-16.3); LEFT SHIFT FLG 0 (0-99); LIPEMIA HEMOLYSIS FLAG 80 (0-99); MEAN CELL HEMOGLOBIN 27.5 pg (27.9-34.1); MEAN CELL HEMOGLOBIN CONCENTR. 33.3 g/dL (32.4-36.7); MEAN CELL VOLUME 82.8 fL (81.5-99.8); MEAN PLATELET VOLUME 9.7 fL (8.7-11.7); PLATELET CLUMPS FLAG 0 (0-99); PLATELET COUNT 165 10^3/uL (150-400); RED BLOOD CELL COUNT 5.01 10^6/uL (4.18-5.33); RED CELL DISTRIBUTION WIDTH 14.4 % (11.5-15.2)
[2017-05-21 18:40] LABS: INR 1.1 (0.83-1.16); PROTIME(PATIENT) 14.1 SEC (12.0-15.0)
[2017-05-21 18:41] LABS: APTT 29.1 SEC (23.0-38.0)
[2017-05-21] MEDS: METOPROLOL TARTRATE 25 MG TAB PO SCH (20:31)
[2017-05-21] MEDS: ALTEPLASE 5 MG in NS 100 ML IV SCH (21:00)
[2017-05-22] MEDS: ALTEPLASE 5 MG in NS 100 ML IV SCH ×3 (00:42→13:00)
[2017-05-22 00:50] LABS: APTT 30.4 SEC (23.0-38.0)
[2017-05-22 05:51] LABS: % IMMATURE GRANULYOCYTES 0.4 % (0.0-1.1); ABSOLUTE IMMATURE GRANULOCYTES 0.04 10^3/uL (0.00-0.10); ADD DIFF? NO; ADD MORPH? NO; ADD SCAN? NO; ATYPICAL LYMPHOCYTE FLAG 0 (0-99); FRAGMENT RBC FLAG 0 (0-99); HEMATOCRIT 41.3 % (38.0-47.0); HEMOGLOBIN 13.7 g/dL (12.6-16.3); LEFT SHIFT FLG 0 (0-99); LIPEMIA HEMOLYSIS FLAG 80 (0-99); MEAN CELL HEMOGLOBIN 27.7 pg (27.9-34.1); MEAN CELL HEMOGLOBIN CONCENTR. 33.2 g/dL (32.4-36.7); MEAN CELL VOLUME 83.6 fL (81.5-99.8); MEAN PLATELET VOLUME 9.7 fL (8.7-11.7); PLATELET CLUMPS FLAG 0 (0-99); PLATELET COUNT 147 10^3/uL (150-400); RED BLOOD CELL COUNT 4.94 10^6/uL (4.18-5.33); RED CELL DISTRIBUTION WIDTH 14.2 % (11.5-15.2)
[2017-05-22 06:11] LABS: ANION GAP 9 mEq/L (8-16); CALCIUM 8.7 mg/dL (8.5-10.4); CARBON DIOXIDE 23 mEq/l (22-31); CHLORIDE 106 mEq/L (97-110); CREATININE 0.9 mg/dL (0.6-1.0); GLOMERULAR FILTRATION RATE > 60; GLUCOSE 108 mg/dL (70-100); POTASSIUM 3.8 mEq/L (3.5-5.2); SODIUM 138 mEq/L (134-144)
[2017-05-22] MEDS: METOPROLOL TARTRATE 25 MG TAB PO SCH ×2 (08:56→20:39)
[2017-05-22] MEDS ORDERED: fentaNYL 100 MCG/2 ML INJ ONE ×3 (10:24→18:25)
[2017-05-22] MEDS ORDERED: MIDAZOLAM 2 MG/2 ML VIAL ONE ×2 (10:25→12:10)
[2017-05-22] MEDS ORDERED: BISACODYL 10 MG SUPP PR PRN (10:39)
[2017-05-22] MEDS ORDERED: POLYETHYLENE GLYCOL 3350 17 GM PKT PO PRN (10:39)
[2017-05-22] MEDS ORDERED: LACTULOSE 20 GM/30 ML UDCUP PO PRN (10:39)
[2017-05-22] MEDS ORDERED: MAGNESIUM HYDROXIDE 30 ML UDCUP PO PRN (10:39)
--- NOTE | 2017-05-22 10:57 | ASMTCMCOM ---
CM Note CM Note Notes: 76 year old female admitted for LLE DVT. She has a hx of DVT, HTN, CAD, SBO. Patient lives with her . CM to follow for possible discharge needs. Date Signed: 05/22/2017 10:57 AM Electronically Signed By:Inez Hussein LCSW
[2017-05-22] MEDS ORDERED: IOPAMIDOL (ISOVUE-300) 100 ML BTL ONE ×2 (12:12→19:25)
[2017-05-22] MEDS ORDERED: CEFAZOLIN 1 GM/DEXTROSE/50 ML BAG IV ONE (12:45)
[2017-05-22] MEDS ORDERED: HYDROmorphONE/DILAUDID 1 MG/ML INJ IVP PRN ×2 (13:55→18:54)
[2017-05-22 14:23] LABS: APTT 33.6 SEC (23.0-38.0)
--- NOTE | 2017-05-22 15:27 | HOSPPROG ---
Hospitalist Progress Note Assessment/Plan: 76 yo F with prior hx of DVT recently taken off of AC presenting with acute and chronic DVT # acute and chronic DVT: extensive involving left popliteal, femoral and iliac veins. Is s/p venography and catheter directed lysis but area of chronic occlusion was not able to be traversed and plan to attempt again tomorrow per IR. Patient likely at this point a candidate for lifelong anticoagulation. # htn: chronically on metoprolol, bp currently well controlled to mildly low # hx of CAD: without e/o ACS or complaints of chest pain at this time # h/o sbo: not an acute issue, bowel protocol # dispo: IP status, high risk medications being administered requiring ICU level care Patient new to my care. Old records reviewed and summarized as above. Care plan reviewed with Christy and multidisciplinary care team. Subjective: no significant overnight events, patient feeling tired but otherwise well Objective: Vital Signs Temp Pulse Resp BP Pulse Ox 37.0 C 97 13 143/86 H 96 05/22/17 13:00 05/22/17 14:00 05/22/17 14:00 05/22/17 14:00 05/22/17 14:00 Laboratory Results 05/22/17 05:40 05/22/17 05:40 05/21/17 05/22/17 05/23/17 05:59 05:59 05:59 Intake Total 2271.6 Output Total 2250 Balance 21.6 PT 14.1 SEC (12.0-15.0) 05/21/17 18:22 INR 1.10 (0.83-1.16) 05/21/17 18:22 awake alert nad anicteric rrr no mrg cta soft nt nd no cce warm dry well perfused oriented ICD10 Worksheet Patient Problems: Problems Problem Status Onset Iliac DVT (deep venous thrombosis) Acute Left leg DVT Acute Coronary artery disease Chronic Hypertension Chronic Hyperlipidemia Chronic History of coronary artery stent placement Chronic Atrial fibrillation Chronic
--- NOTE | 2017-05-22 16:09 | GCON ---
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 HISTORY OF PRESENT ILLNESS: The patient is a very pleasant 76-year-old white female with a past [facility] history of hypertension, coronary artery disease, status post coronary artery bypass graft, previ ous DVTs, and osteoarthritis. She presented with acute leg pain in the left lower extremity. It beg an 1 day prior to admission. Two days prior, she had discontinued her Eliquis. She was seen in the emergency room and found to have an extensive deep venous thrombosis. [facility] and has undergone EKOS, localized thrombolysis. Currently she is resting comfortabl y. PAST MEDICAL HISTORY: Again significant for hypertension, coronary artery disease, DVT, urinary trac t infection, pneumonia, small-bowel obstruction and osteoarthritis. ALLERGIES: Penicillin and sulfa. MEDICATIONS: At home include Eliquis, for which she was taken off. SOCIAL HISTORY: No history of tobacco use. No history of alcohol use. 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 She is with children. She has excellent family support. She has li cheri in [place] for many years, is originally from [place]. PHYSICAL EXAM: VITAL SIGNS: Blood pressure 97/84, pulse 78, respirations 15, temperature 37.0, oxyg en saturation is 98% on 2 L. GENERAL: She is a well-developed, well-nourished, mildly overweight, e lderly, white female, who is resting comfortably, in no acute distress. HEENT: Eyes PERRLA, EOMI. Throat shows no erythema or tonsillar hypertrophy. NECK: Supple. There is no cervical adenopathy. HEART: Regular rate and rhythm with a 2/6 systolic murmur at the left sternal border without radiat ion. LUNGS: Diminished breath sounds, but no wheeze. ABDOMEN: Soft, nontender. Bowel sounds pres ent in all 4 quadrants. EXTREMITIES: There is no clubbing, cyanosis, or edema. LABORATORIES: White count 9.1, hemoglobin 13, hematocrit 41, platelet count is 147. Sodium 138, pot assium 3.8, chloride 106, CO2 is 23, BUN 10, creatinine 0.9, glucose is 108. IMPRESSION: 1. Extensive deep venous thrombosis. 2. Hypertension. 3. Coronary artery disease. 4. History of small-bowel obstruction. RECOMMENDATIONS: 1. The patient is undergoing localized thrombolysis. 2. The patient likely should remain on chronic anticoagulation as an outpatient. 3. Adequate pain control. 4. Adequate nutrition. /[id number]/MODL
[2017-05-22] MEDS ORDERED: PROPOFOL/EMULSION 500 MG/50 ML BOTTLE IV ONE (17:52)
--- NOTE | 2017-05-22 18:47 | PDANEPAE ---
ANE History of Present Illness h/o BLE DVT ANE Past Medical History - Cardiovascular History Hx Hypertension: Yes Hx Arrhythmias: No Hx Chest Pain: No Hx Coronary Artery / Peripheral Vascular Disease: Yes Hx CHF / Valvular Disease: No Hx Palpitations: No - Pulmonary History Hx COPD: No Hx Asthma/Reactive Airway Disease: No Hx Recent Upper Respiratory Infection: No Hx Oxygen in Use at Home: No Hx Sleep Apnea: No - Endocrine History Hx Diabetes: No Hypothyroid: No Hyperthyroid: No Obesity: yes - Chronic Pain History Chronic Pain: No ANE Review of Systems Review of systems is: negative Review of Systems: - Exercise capacity Exercise capacity: <4 METS ANE Patient History - Allergies Allergies/Adverse Reactions: Penicillins Allergy (Intermediate, Verified 02/20/17 06:46) Rash Sulfa (Sulfonamide Antibiotics) Allergy (Verified 02/20/17 06:46) - Home Medications Home medications: home medication list seen and reviewed Home Medications: Apixaban [Eliquis] 2.5 mg PO BID 05/21/17 [Last Taken 05/19/17] - Anes Hx Anes Hx: no prior problems - Smoking Hx Smoking Status: Never smoked - Alcohol Use Alcohol Use: None ANE Labs/Vital Signs - Labs Result Diagrams: 05/22/17 05:40 05/22/17 05:40 - Vital Signs Blood Pressure: 141/65 Heart Rate: 80 Respiratory Rate: 18 O2 Sat (%): 98 Height: 165.1 cm Weight: 112.4 kg ANE Physical Exam - Airway Neck exam: FROM Mallampati Score: Class 2 Mouth exam: normal dental/mouth exam - Pulmonary Pulmonary: no respiratory distress - Cardiovascular Cardiovascular: regular rate and rhythym - ASA Status ASA Status: III ANE Anesthesia Plan Anesthesia Plan: GA with mask Urgent/Emergent Case: Suzie weems completed preop but documented later for safe timely pt care
[2017-05-22] MEDS ORDERED: LR 500 ML IV PRN (18:54)
[2017-05-22] MEDS ORDERED: ONDANSETRON 4 MG/2 ML VIAL IVP PRN (18:54)
[2017-05-22] MEDS ORDERED: ALBUTEROL 3 ML DEYVIAL IH PRN (18:54)
[2017-05-22] MEDS ORDERED: fentaNYL 100 MCG/2 ML INJ IVP PRN (18:54)
[2017-05-22] MEDS ORDERED: ACETAMINOPHEN 500 MG TAB PO PRN (18:54)
[2017-05-22] MEDS ORDERED: PROMETHAZINE HCL 25 MG/ML INJ IVP PRN (18:54)
[2017-05-22] MEDS ORDERED: NALOXONE HCL 0.4 MG/ML INJ IVP PRN (18:54)
[2017-05-22] MEDS ORDERED: HEPARIN 10,000 UNIT/10 ML MDV IVP PRN ×2 (19:20→20:50)
[2017-05-22] MEDS ORDERED: HEPARIN 10,000 UNIT/10 ML MDV IVP ONE ×2 (19:20→20:50)
[2017-05-22 19:31] LABS: HEMATOCRIT 42.2 % (38.0-47.0); HEMOGLOBIN 13.5 g/dL (12.6-16.3)
--- NOTE | 2017-05-22 19:32 | POSTANESTH ---
Post Anesthetic Evaluation Cardiovascular Status: Normal, Stable Respiratory Status: Normal, Stable Level of Consciousness/Mental Status: Mildly Sleepy, Arousable Pain Control: Adequate, Prn Tx Ordered Nausea/Vomiting Control: Adequate, Prn Tx Ordered Complications Possibly Related to Anesthesia: None Noted
[2017-05-22] MEDS: NS 1,000 ML IV SCH ×2 (20:31→23:14)
[2017-05-22 20:39] LABS: % IMMATURE GRANULYOCYTES 0.5 % (0.0-1.1); ABSOLUTE IMMATURE GRANULOCYTES 0.06 10^3/uL (0.00-0.10); ADD DIFF? NO; ADD MORPH? NO; ADD SCAN? NO; ATYPICAL LYMPHOCYTE FLAG 0 (0-99); FRAGMENT RBC FLAG 0 (0-99); HEMATOCRIT 41.5 % (38.0-47.0); HEMOGLOBIN 13.4 g/dL (12.6-16.3); LEFT SHIFT FLG 0 (0-99); LIPEMIA HEMOLYSIS FLAG 80 (0-99); MEAN CELL HEMOGLOBIN 27.5 pg (27.9-34.1); MEAN CELL HEMOGLOBIN CONCENTR. 32.3 g/dL (32.4-36.7); PLATELET CLUMPS FLAG 0 (0-99); PLATELET COUNT 143 10^3/uL (150-400); RED BLOOD CELL COUNT 4.88 10^6/uL (4.18-5.33); RED CELL DISTRIBUTION WIDTH 14.2 % (11.5-15.2)
[2017-05-22 20:48] LABS: INR 1.26 (0.83-1.16); PROTIME(PATIENT) 15.8 SEC (12.0-15.0)
[2017-05-22 20:49] LABS: APTT 30.4 SEC (23.0-38.0)
[2017-05-22] MEDS: SENNOSIDES/DOCUSATE SODIUM TAB PO SCH (21:27)
[2017-05-22] MEDS: HEPARIN/DEXTROSE 500 ML IV SCH (21:27)
[2017-05-23] MEDS: LORazepam 1 MG TAB PO PRN ×2 (01:10→03:15)
[2017-05-23] MEDS: ACETAMINOPHEN 325 MG TAB PO PRN ×2 (03:15→20:02)
[2017-05-23 03:56] LABS: % IMMATURE GRANULYOCYTES 0.5 % (0.0-1.1); ABSOLUTE IMMATURE GRANULOCYTES 0.08 10^3/uL (0.00-0.10); ADD DIFF? NO; ADD MORPH? NO; ADD SCAN? NO; ATYPICAL LYMPHOCYTE FLAG 0 (0-99); FRAGMENT RBC FLAG 0 (0-99); HEMOGLOBIN 12.9 g/dL (12.6-16.3); LEFT SHIFT FLG 0 (0-99); LIPEMIA HEMOLYSIS FLAG 80 (0-99); MEAN CELL HEMOGLOBIN 27.7 pg (27.9-34.1); MEAN CELL HEMOGLOBIN CONCENTR. 33.1 g/dL (32.4-36.7); MEAN CELL VOLUME 83.9 fL (81.5-99.8); MEAN PLATELET VOLUME 10.4 fL (8.7-11.7); PLATELET CLUMPS FLAG 0 (0-99); PLATELET COUNT 155 10^3/uL (150-400); RED BLOOD CELL COUNT 4.65 10^6/uL (4.18-5.33); RED CELL DISTRIBUTION WIDTH 14.1 % (11.5-15.2)
--- NOTE | 2017-05-23 04:27 | GCON ---
[f rep st] CONSULTATION HEMATOLOGY CONSULTATION REASON FOR CONSULTATION: Recurrent DVT, left leg. HISTORY OF PRESENT ILLNESS: This is a pleasant 76-year-old healthy white female who gives a history of having developed an unprovoked DVT 6 months ago in November 2016 treated at [facility], placed o n Eliquis and maintained on Eliquis without complications until last week. The patient reports after her DVT, when she was upright and active, she would have edema in the left leg that would resolve ov ernight. Although the edema occurred routinely in the past several months after her initial hospital ization, it never was painful. The patient had no provoked events leading up to her November 2016 DVT and there was no family history o f thrombophilic-inherited condition. The patient discontinued Eliquis at her medical instructions late last week approximately, Sunday, Se ptember 29. She played a round of golf on Sunday and as of yesterday noted extensive and worsening e arcelia throughout the entire left leg that became acutely painful. The patient was admitted via the em ergency department yesterday and had Doppler and venogram studies showing extensive DVT from the dist al left external iliac vein extending downward into the femoral and popliteal vein. She has now unde rgone catheter-directed thrombolysis with partial success with an area of chronic occlusion not able to be traversed by yesterday's interventional procedure. The patient is currently stable overnight and will have a repeat procedure later today in an attempt to traverse the chronic occlusion. The patient has had no recent injury, has no upcoming surgery and had a partial small bowel obstructi on which resolved spontaneously a few months ago. She does not use tobacco products. She has no kno wn autoimmune disorder and no history of malignancy. ALLERGIES: Include penicillin and sulfa. PRIOR MEDICAL HISTORY: Includes coronary artery disease status post coronary artery stent placement, hypertension, paroxysmal atrial fibrillation, hyperlipidemia. PRIOR SURGICAL HISTORY: Includes appendectomy, 8th grade, CABG 4 vessel in 2014, bilateral knee surg eries in 1960s and 1970s. 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 She enjoys outdoor activities including playing golf with her . REVIEW OF SYSTEMS: Pertinent review of systems are notable as above. PHYSICAL EXAMINATION: GENERAL: This is a pleasant elderly white female, in no acute distress. She is seen with her . She is alert and conversant. HEENT: Shows no facial asymmetry. Sclerae anicteric. Oral mucosa intact. NECK: No adenopathy in the neck. Thyroid not enlarged. LUNG: Fie lds clear. CARDIAC: Regular rhythm without S3 or S4. ABDOMEN: Soft, without mass, tenderness, or HSM. BREAST: Deferred. EXTREMITIES: Notable for some residual edema in the left lower extremity w ithout palpable cords. Pulses are strong and regular. SKIN: Intact. No ecchymoses. LABORATORY DATA: Shows admission fibrinogen 512. BUN 10, creatinine 0.9, glucose 108, calcium 8.7. Electrolytes within normal limits. Admission PT 13.9, APTT 25. Admission white count 7.9, hemoglob in 13.8, MCV 83, platelet count 165, white count differential within normal range. IMPRESSION: Recurrent deep venous thrombosis left lower extremity with recurrence of symptomatic mojgan n and large impressive deep venous thrombosis extending from the left external iliac vein down to the popliteal shortly after discontinuation of Eliquis anticoagulation. COMMENTS: Putting the scenario together, she likely had complete occlusion of the venous system on t he left leg which, when anticoagulation was discontinued, she had rapid propagation from the site of thrombus and occlusion. She is now undergoing catheter-directed thrombolysis with an attempt to open up the complete occlusion. Given that she presents with her 1st episode at age76, I doubt that we need to do a thrombophilia garcia el now that she has a scenario of recurrent thromboembolic phenomenon shortly after discontinuation o f full-dose Eliquis. At this point, I would plan to continue some form of full anticoagulation such as Eliquis on an indefinite schedule or certainly for at least 6 months with a careful study of her l eft leg venous system to consider if anticoagulation might be discontinued with complete resolution o f the occlusion. 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 Of course, if she dev eloped a contraindication to anticoagulation, this recommendation would need to be reconsidered. I will be pleased to follow the patient's clinical course during her hospitalization. I have reviewdelgado d thoughts on continued and prolonged anticoagulation with the patient and and their issues a nd questions were discussed. /[id number]/MODL
[2017-05-23 05:12] LABS: APTT 188.4 SEC (23.0-38.0)
[2017-05-23 07:19] LABS: APTT 196.9 SEC (23.0-38.0)
[2017-05-23] MEDS: METOPROLOL TARTRATE 25 MG TAB PO SCH ×2 (08:40→20:01)
[2017-05-23] MEDS: SENNOSIDES/DOCUSATE SODIUM TAB PO SCH ×2 (08:40→20:02)
--- NOTE | 2017-05-23 09:03 | PDINTPN ---
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 Pain is well controlled. Denies any chest pain. There is no breathlessness Objective: Vital Signs Temp Pulse Resp BP Pulse Ox 36.8 C 81 19 103/59 L 97 05/23/17 08:00 05/23/17 08:00 05/23/17 08:00 05/23/17 08:00 05/23/17 08:00 Laboratory Results 05/23/17 03:30 05/22/17 05:40 05/22/17 05/23/17 05/24/17 05:59 05:59 05:59 Intake Total 2271.6 1727 Output Total 2250 1000 Balance 21.6 727 PT 15.8 SEC (12.0-15.0) H 05/22/17 20:20 INR 1.26 (0.83-1.16) H 05/22/17 20:20 Physical Exam - Physical Exam General Appearance: WD/WN, alert EENT: PERRL/EOMI, normal ENT inspection, pharynx normal, TMs normal Neck: non-tender, full range of motion, supple, normal inspection Respiratory: chest non-tender, lungs clear, normal breath sounds, prolonged expiration Cardiac/Chest: normal peripheral pulses, regular rate, rhythm, systolic murmur Peripheral Pulses: 2+: carotid (R), carotid (L), femoral (R), femoral (L), dorsalis-pedis (R), dorsalis-pedis (L) Abdomen: normal bowel sounds, non-tender, soft Pelvic Exam: deferred Rectal: deferred Skin: normal color, warm/dry Extremities: normal range of motion, non-tender, normal inspection, normal capillary refill Neuro/Psych: no motor/sensory deficits, alert, normal mood/affect, oriented x 3 ICD10 Worksheet Patient Problems: Problems Problem Status Onset Iliac DVT (deep venous thrombosis) Acute Left leg DVT Acute Atrial fibrillation Chronic Coronary artery disease Chronic History of coronary artery stent placement Chronic Hyperlipidemia Chronic Hypertension Chronic
[2017-05-23] MEDS: HEPARIN/DEXTROSE 500 ML IV SCH (12:17)
[2017-05-23] MEDS: NS 1,000 ML IV SCH (12:17)
--- NOTE | 2017-05-23 16:08 | HOSPPROG ---
Hospitalist Progress Note Assessment/Plan: 76 yo F with prior hx of DVT recently taken off of AC presenting with acute and chronic DVT # acute and chronic DVT: extensive involving left popliteal, femoral and iliac veins. Is s/p venography and catheter directed lysis. Patient likely at this point a candidate for lifelong anticoagulation. Appreciate oncology consultation and recommendation for at least 6 months to potentially lifelong AC. Will transition from heparin gtt today to lovenox and coumadin. # htn: chronically on metoprolol, bp currently well controlled to mildly low # hx of CAD: without e/o ACS or complaints of chest pain at this time # h/o sbo: not an acute issue, bowel protocol # dispo: IP status, high risk medications being administered requiring ICU level care Care plan reviewed with Christy and multidisciplinary care team. Subjective: no significant overnight events, patient currently feeling better though she has had some pain when trying to stand/walk Objective: Vital Signs Temp Pulse Resp BP Pulse Ox 36.8 C 81 17 106/58 L 90 L 05/23/17 08:00 05/23/17 14:00 05/23/17 14:00 05/23/17 14:00 05/23/17 14:00 Laboratory Results 05/23/17 03:30 05/22/17 05:40 05/22/17 05/23/17 05/24/17 05:59 05:59 05:59 Intake Total 2271.6 1727 Output Total 2250 1000 550 Balance 21.6 727 -550 PT 15.8 SEC (12.0-15.0) H 05/22/17 20:20 INR 1.26 (0.83-1.16) H 05/22/17 20:20 awake alert nad anicteric rrr no mrg cta soft nt nd no cce warm dry well perfused oriented ICD10 Worksheet Patient Problems: Problems Problem Status Onset Iliac DVT (deep venous thrombosis) Acute Left leg DVT Acute Atrial fibrillation Chronic Coronary artery disease Chronic History of coronary artery stent placement Chronic Hyperlipidemia Chronic Hypertension Chronic
[2017-05-23] MEDS: ENOXAPARIN 100 MG/ML SYR SC SCH (20:01)
[2017-05-24 04:30] VITALS: RESP 18; O2SAT 96
[2017-05-24 07:46] VITALS: TEMP 98.4
--- NOTE | 2017-05-24 08:58 | PDINTPN ---
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 Start PT and OT Ambulation in the [place] Likely discharge home today. Subjective: Resting comfortably. Leg pain markedly improved. Objective: Vital Signs Temp Pulse Resp BP Pulse Ox 36.9 C 75 18 110/59 L 96 05/24/17 07:44 05/24/17 07:44 05/24/17 07:44 05/24/17 07:44 05/24/17 07:44 Laboratory Results 05/23/17 03:30 05/22/17 05:40 05/23/17 05/24/17 05/25/17 05:59 05:59 05:59 Intake Total 1727 2299 Output Total 1000 550 Balance 727 1749 PT 15.8 SEC (12.0-15.0) H 05/22/17 20:20 INR 1.26 (0.83-1.16) H 05/22/17 20:20 Physical Exam - Physical Exam General Appearance: WD/WN, alert, no apparent distress EENT: PERRL/EOMI, normal ENT inspection, pharynx normal, TMs normal Neck: non-tender, full range of motion, supple, normal inspection Respiratory: chest non-tender, lungs clear, normal breath sounds Cardiac/Chest: normal peripheral pulses, regular rate, rhythm, systolic murmur Abdomen: normal bowel sounds, non-tender, soft Pelvic Exam: deferred Rectal: deferred Skin: normal color, warm/dry Extremities: normal range of motion, non-tender, normal inspection, normal capillary refill ICD10 Worksheet Patient Problems: Problems Problem Status Onset Iliac DVT (deep venous thrombosis) Acute Left leg DVT Acute Atrial fibrillation Chronic Coronary artery disease Chronic History of coronary artery stent placement Chronic Hyperlipidemia Chronic Hypertension Chronic
[2017-05-24] MEDS: SENNOSIDES/DOCUSATE SODIUM TAB PO SCH (09:36)
[2017-05-24] MEDS: ENOXAPARIN 100 MG/ML SYR SC SCH (09:36)
[2017-05-24] MEDS: METOPROLOL TARTRATE 25 MG TAB PO SCH (09:36)
[2017-05-24 09:37] VITALS: BP 111/62; PULSE 87
[2017-05-24] MEDS ORDERED: APIXABAN 5 MG TAB PO SCH ×2 (11:00→21:00)
--- NOTE | 2017-05-24 11:03 | PDDCSUM ---
Discharge Summary Discharge Summary: Dates of service 05/21-05/24/17 consultations: IR, pulmonary, oncology Procedures performed: venogram, transcatheter embolization, vena cavagram, PICC placement Hospital course by problem: # acute and chronic DVT: extensive involving left popliteal, femoral and iliac veins. Is s/p venography and catheter directed lysis. Patient likely at this point a candidate for lifelong anticoagulation. Appreciate oncology consultation and recommendation for at least 6 months to potentially lifelong AC. Placed back on eliquis at higher dose for 1 week--10mg po bid, then 5mg po bid. Will f/u with PCP and Sam who has been following for DVt in the past as well # htn: chronically on metoprolol, bp currently well controlled to mildly low # hx of CAD: without e/o ACS or complaints of chest pain at this time # h/o sbo: not an acute issue, bowel protoco DC home f/u with PCP/cardiology > 35 min spent in dc more than half in coordination of care and face to face counseling of patient and her
--- NOTE | 2017-05-24 11:07 | ASMTCMCOM ---
CM Note CM Note Notes: CM Discharge Note: Spoke with patient and , they feel comfortable going home with no add'l services. RANDI Nj confirmed that patient is independent. will transport home. Date Signed: 05/24/2017 11:06 AM Electronically Signed By:She Randle RN
--- NOTE | 2017-05-24 16:40 | ASDISCHSUM ---
Discharge Information Plan Status:Home with No Needs Medically Cleared to Leave: Discharge Date:05/24/2017 11:45 AM CM D/C Disposition:Home, Routine, Self-Care ADT D/C Disposition:Home, Routine, Self-Care Projected Discharge Date:05/24/2017 11:45 AM Transportation at D/C:Family Discharge Delay Reason: Follow-Up Date:05/24/2017 11:45 AM Discharge Slot: Final Diagnosis:LE DVT Placement Information Patient Contact Information Contact Name:ORACIO Relationship: Address:[address] Work Phone: [facility] Phone: [facility]/Zip Code:[place] [address] Email: Financial Information Financial Class:HMO and PPO Plans Primary Plan Desc:[facility] [employer] Primary Plan Number:[id number] Secondary Plan Desc: Secondary Plan Number: Assessment Information [facility] CM Progress Note CM Note CM Note Notes: 76 year old female admitted for LLE DVT. She has a hx of DVT, HTN, CAD, SBO. Patient lives with her . CM to follow for possible discharge needs. Date Signed: 05/22/2017 10:57 AM Electronically Signed By:Inez Hussein LCSW [facility] CM Progress Note CM Note CM Note Notes: CM Discharge Note: Spoke with patient and , they feel comfortable going home with no add'l services. RANDI Nj confirmed that patient is independent. will transport home. Date Signed: 05/24/2017 11:06 AM Electronically Signed By:She Randle RN Intervention Information
== END 2017-05-24 11:45 | disposition home or self-care (01) | DRG 272 ==
LOC: F2N 16:26
PROVIDERS: ADMIT Internal Medicine; ATTEND Internal Medicine
PROC: 06CN3ZZ Extirpation of Matter from Left Femoral Vein, Percutaneous Approach (ICD-10-PCS; principal; 2017-05-23)
PROC: 02HV33Z Insertion of Infusion Device into Superior Vena Cava, Percutaneous Approach (ICD-10-PCS; principal; 2017-05-23)
DX: I82.412 Acute embolism and thrombosis of left femoral vein (principal); I82.432 Acute embolism and thrombosis of left popliteal vein; I82.422 Acute embolism and thrombosis of left iliac vein; I82.592 Chronic embolism and thrombosis of other specified deep vein of left lower extremity; I10 Essential (primary) hypertension; I25.10 Atherosclerotic heart disease of native coronary artery without angina pectoris
CPT/HCPCS: 85520-90; 96374; 97161-GP; 97165-GO; C1751; C1757; C1769; C1892; C1894; J0690; J1644; J1650; J2250; J2704; J2997; J3010; Q9967

== ENCOUNTER 2017-06-06 01:30 | Emergency (ER) | payer BC ==
--- NOTE | 2017-06-06 02:15 | EDPHY ---
H & P Stated Complaint: PAIN BEHIND RIGHT KNEE SINCE YEST, SUSPECTS BLOOD CLOT HPI/ROS: HPI CHIEF COMPLAINT: Right knee pain times 48 hours. HISTORY OF PRESENT ILLNESS: This patient very pleasant 68-year-old female she does have significant past medical history for hypertension, coronary artery disease history of DVT on Eliquis. She presents emergency room with 24-48 hours right knee pain. Worse when she ambulates in range of motion of right knee. She denies any significant swelling, redness, fever. Denies direct trauma. She decided come the emergency room to make sure she does not have a blood clot. She denies any abnormal swelling to her leg. Denies chest pain or shortness of breath. Denies pleuritic pain. Is compliant with her Eliquis. Past Medical History: Hypertension, coronary artery disease, DVT, small-bowel obstruction Past Surgical History: No recent surgery, thrombectomy. Social History: Denies daily use drugs alcohol tobacco products. Family History: Noncontributory. ROS REVIEW OF SYSTEMS: A comprehensive 10 point review of systems is otherwise negative aside from elements mentioned in the history of present illness. Exam Constitutional appears well nontoxic, triage nursing summary reviewed, vital signs reviewed, awake/alert. Eyes normal conjunctivae and sclera, EOMI, PERRLA. HENT normal inspection, atraumatic, moist mucus membranes, no epistaxis, neck supple/ no meningismus, no raccoon eyes. Respiratory clear to auscultation bilaterally, normal breath sounds, no respiratory distress, no wheezing. Cardiovascular rate normal, regular rhythm, no murmur, no edema, distal pulses normal. Gastrointestinal soft, non-tender, no rebound, no guarding, normal bowel sounds, no distension, no pulsatile mass. Genitourinary no CVA tenderness. Musculoskeletal right lower extremity: Warm extremity. Neurovascular intact. Good cap refill. Good distal pulse. Full range of motion of the right knee. No abnormal swelling. No joint effusion. No popliteal fullness. no midline vertebral tenderness, full range of motion, no calf swelling, no tenderness of extremities, no meningismus, good pulses, neurovascularly intact. Skin pink, warm, & dry, no rash, skin atraumatic. Neurologic awake, alert and oriented x 3, AAOx3, moves all 4 extremities equally, motor intact, sensory intact, CN II-XII intact, normal cerebellar, normal vision, normal speech. Psychiatric normal mood/affect. Heme/Lymph/Immune no lymphadenopathy. Differential Diagnosis: Includes but is not limited to in a particular order right knee arthritis, right knee contusion, fracture, a fusion joint effusion, doubt septic joint, DVT. Medical Decision Making: Plan for this patient x-ray right knee, ultrasound right lower extremity. Rule out DVT. Re-evaluation: Ultrasound of the right lower extremity. The results of the study are negative for DVT.. I discussed the results of this study with the radiologist Dr. Grigsby. 0315: X-ray the right knee reviewed. Shows arthritis. However no significant effusion or soft tissue swelling. 0315: Updated patient about her x-ray results and ultrasound. We do not appreciate a DVT. X-ray shows arthritis. Most likely cause of pain is arthritic pain. Recommend anti-inflammatory pain medicine, ice, elevation of her leg and rest. Cody for severe pain. Additionally follow up with her primary care doctor. Understands return emergency room she develops worsening symptoms questions or concerns she understands. Source: Patient - Personal History Current Tetanus/Diphtheria Vaccine: No Tetanus Vaccine Date: 2003 - Medical/Surgical History Hx Asthma: No Hx Chronic Respiratory Disease: No Hx Diabetes: No Hx Cardiac Disease: Yes Hx Renal Disease: No Hx Cirrhosis: No Hx Alcoholism: No Hx HIV/AIDS: No Hx Splenectomy or Spleen Trauma: No Other PMH: Stents x4, HTN, CABG-2013, L leg blood clot 01/2017 AND 05/2017, APPY - Social History Smoking Status: Never smoked Constitutional: Initial Vital Signs Temperature (C) 36.3 C 06/06/17 01:40 Heart Rate 107 H 06/06/17 01:40 Respiratory Rate 20 06/06/17 01:40 Blood Pressure 110/82 H 06/06/17 01:40 O2 Sat (%) 92 06/06/17 01:40 O2 Delivery Mode Room Air Allergies/Adverse Reactions: Penicillins Allergy (Intermediate, Verified 06/06/17 01:39) Rash Sulfa (Sulfonamide Antibiotics) Allergy (Verified 06/06/17 01:39) Home Medications: Medication Instructions Recorded Metoprolol Tartrate [Lopressor 25 12.5 mg PO BID #30 tab 12/16/13 mg (*)] Apixaban [Eliquis] 5 mg PO BID #60 tab 05/24/17 Hydrocodone/APAP 5/325 [Cody 1 - 2 tab PO Q4H PRN #10 tab 06/06/17 5/325] Departure - Departure Disposition: Home, Routine, Self-Care Clinical Impression: Arthritis Knee pain, acute Qualifiers: Laterality: right Qualified Code(s): M25.561 - Pain in right knee Condition: Good Instructions: Knee Pain (ED), Arthralgia (ED) Additional Instructions: 1. Follow up with her primary care doctor. 2. Ice her knee. 3. Take pain medicine for mild pain like Tylenol or Motrin. Cody for severe pain. 4. Return emergency room if there is worsening symptoms fever swelling or pain. Referrals: Tavares Araiza MD [Primary Care Provider] - As per Instructions Prescriptions: Hydrocodone/APAP 5/325 [Cody 5/325] 1 - 2 tab PO Q4H PRN #10 tab PRN Reason: Pain, Moderate
[2017-06-06 03:40] VITALS: BP 116/72; PULSE 90; RESP 16; TEMP 97.7; O2SAT 93
== END 2017-06-06 03:39 | disposition home or self-care (01) ==
DX: M17.9 Osteoarthritis of knee, unspecified (principal); I10 Essential (primary) hypertension; I25.810 Atherosclerosis of coronary artery bypass graft(s) without angina pectoris; Z79.01 Long term (current) use of anticoagulants

== ENCOUNTER → 2017-06-27 | Outpatient (CLI) | payer BC | LOC: FIMAGING 17:02 | PROVIDERS: ATTEND Nurse Practitioner Adult Health | DX: I74.5 Embolism and thrombosis of iliac artery (principal); M66.0 Rupture of popliteal cyst ==

== ENCOUNTER 2017-11-02 01:30 | Observation (INO) | payer BC ==
--- NOTE | 2017-11-02 02:03 | EDPHY ---
H & P Stated Complaint: c/o cough/sob x 3 days Time Seen by Provider: 11/02/17 01:56 HPI/ROS: Chief Complaint: Shortness of breath HPI: A 76-year-old woman was at progressive worsening shortness of breath for the last 3 days. She has had mild cough. No chest pain. Has had worsening dyspnea on exertion. Does have a history of coronary artery disease and a DVT diagnosed 2 months ago. She is on Eliquis. She did not have evidence of PE at that time. She has got chronic leg swelling in her left leg which is unchanged from her DVT. No other worsening right leg swelling. No fevers or chills. She sleeps on 1 pillow and this has not changed. ROS: 10 point Review of Systems is negative except as noted in the HPI. PMH: Coronary artery disease status post stenting and CABG 10 years ago, DVT 2 months ago on Eliquis Social History: No smoking, no alcohol, no recreational drug use Family History: non-contributory Physical Exam: Gen: Awake, Alert, No Distress HEENT: Nose: no rhinorrhea Eyes: PERRLA, EOMI Mouth: Moist mucosa Neck: Supple, no JVD Chest: nontender, lungs clear to auscultation Heart: S1, S2 normal, no murmur Abd: Soft, non-tender, no guarding Back: no CVA tenderness, no midline tenderness Ext: no edema, non-tender Skin: no rash Neuro: CN II-XII intact, Sensation grossly intact, Strength 5/5 in bilateral upper and lower extremities - Personal History Tetanus Vaccine Date: 2003 - Medical/Surgical History Hx Asthma: No Hx Chronic Respiratory Disease: No Hx Diabetes: No Hx Cardiac Disease: Yes Hx Renal Disease: No Hx Cirrhosis: No Hx Alcoholism: No Hx HIV/AIDS: No Hx Splenectomy or Spleen Trauma: No Other PMH: Stents x4, HTN, CABG-2013, L leg blood clot 01/2017 AND 05/2017, APPY , tonsillectomy - Social History Smoking Status: Never smoked Constitutional: Initial Vital Signs Temperature (C) 36.6 C 11/02/17 01:35 Heart Rate 63 11/02/17 01:35 Respiratory Rate 18 11/02/17 01:35 Blood Pressure 199/111 H 11/02/17 01:35 O2 Sat (%) 88 L 11/02/17 01:35 O2 Delivery Mode Nasal Cannula O2 (L/minute) 2 Allergies/Adverse Reactions: Penicillins Allergy (Intermediate, Verified 11/02/17 01:39) Rash Sulfa (Sulfonamide Antibiotics) Allergy (Verified 11/02/17 01:39) Home Medications: Medication Instructions Recorded Metoprolol Tartrate [Lopressor 25 12.5 mg PO BID #30 tab 12/16/13 mg (*)] Apixaban [Eliquis] 5 mg PO BID #60 tab 05/24/17 Medical Decision Making - Diagnostics EKG Interpretation: ECG time 2:15 a.m., sinus rhythm with a rate of 64, borderline left axis deviation Q-waves in leads [address] No acute ST or T-wave changes. Unchanged from ECG of November. Imaging Results: CT scan of the chest shows no PE, no infiltrate. There are findings consistent with bronchitis. Interpreted by Dr. Zayas. Imaging: Discussed imaging studies w/ assembly lead person Radiologist ED Course/Re-evaluation: 76-year-old with worsening dyspnea on exertion for the last 3 days. She was hypoxic here to the mid 80s. She is not wheezing. No infiltrate or PE. Will admit for further evaluation. - Data Points Laboratory Results: Laboratory Results 11/02/17 02:17 11/02/17 02:17 11/02/17 11/02/17 02:17 02:17 WBC 6.78 10^3/uL 10^3/uL (3.80-9.50) RBC 5.21 10^6/uL 10^6/uL (4.18-5.33) Hgb 14.2 g/dL g/dL (12.6-16.3) Hct 43.0 % % (38.0-47.0) MCV 82.5 fL fL (81.5-99.8) MCH 27.3 pg L pg (27.9-34.1) MCHC 33.0 g/dL g/dL (32.4-36.7) RDW 14.6 % % (11.5-15.2) Plt Count 250 10^3/uL 10^3/uL (150-400) MPV 9.6 fL fL (8.7-11.7) Neut % (Auto) 50.1 % % (39.3-74.2) Lymph % (Auto) 33.6 % % (15.0-45.0) [place] % (Auto) 10.3 % % (4.5-13.0) Eos % (Auto) 5.2 % % (0.6-7.6) Baso % (Auto) 0.4 % % (0.3-1.7) Nucleat RBC Rel Count 0.0 % % (0.0-0.2) Absolute Neuts (auto) 3.39 10^3/uL 10^3/uL (1.70-6.50) Absolute Lymphs (auto) 2.28 10^3/uL 10^3/uL (1.00-3.00) Absolute Monos (auto) 0.70 10^3/uL 10^3/uL (0.30-0.80) Absolute Eos (auto) 0.35 10^3/uL 10^3/uL (0.03-0.40) Absolute Basos (auto) 0.03 10^3/uL 10^3/uL (0.02-0.10) Absolute Nucleated RBC 0.00 10^3/uL 10^3/uL (0-0.01) Immature Gran % 0.4 % % (0.0-1.1) Immature Gran # 0.03 10^3/uL 10^3/uL (0.00-0.10) Sodium 141 mEq/L mEq/L (135-145) Potassium 4.0 mEq/L mEq/L (3.5-5.2) Chloride 108 mEq/L mEq/L (97-110) Carbon Dioxide 23 mEq/l mEq/l (22-31) Anion Gap 10 mEq/L mEq/L (8-16) BUN 20 mg/dL mg/dL (7-23) Creatinine 0.9 mg/dL mg/dL (0.6-1.0) Estimated GFR > 60 Glucose 92 mg/dL mg/dL (70-100) Calcium 8.8 mg/dL mg/dL (8.5-10.4) Troponin I < 0.012 ng/mL ng/mL (0.000-0.034) Departure - Departure Disposition: [facility] Inpatient Acute Clinical Impression: Acute bronchitis, Dyspnea, Hypoxia Condition: Fair Referrals: Tavares Araiza MD [Primary Care Provider] - As per Instructions
--- NOTE | 2017-11-02 02:17 | CPEKG ---
Heart Rate: 64 RR Interval: 938 P-R Interval: 152 QRSD Interval: 82 QT Interval: 444 QTC Interval: 458 P [place]: 10 QRS [place]: -18 T Wave [place]: -8 EKG Severity - ABNORMAL ECG - EKG Impression: SINUS RHYTHM EKG Impression: PROBABLE INFERIOR INFARCT, AGE INDETERMINATE Electronically Signed By: Shree Murry 02-Nov-2017 05:41:22
[2017-11-02 02:26] LABS: PLATELET COUNT 250 10^3/uL (150-400)
[2017-11-02] MEDS ORDERED: IOPAMIDOL (ISOVUE 370) 100 ML BTL IV ONE (02:43)
[2017-11-02] MEDS ORDERED: ACETAMINOPHEN 325 MG TAB PO PRN (04:08)
[2017-11-02] MEDS ORDERED: ONDANSETRON 4 MG/2 ML VIAL IVP PRN (04:08)
[2017-11-02] MEDS ORDERED: ALBUTEROL 3 ML DEYVIAL IH PRN (04:08)
[2017-11-02] MEDS ORDERED: ONDANSETRON DISINTEGRATING 4 MG TAB PO PRN (04:08)
--- NOTE | 2017-11-02 04:44 | PDGENHP ---
History and Physical - Chief Complaint Shortness of breath - History of Present Illness 76 yo F w/ hx of CAD s/p CABG and DVT presents with shortness of breath. Patient reports 4-5 days of fatigue followed by the development of cough, congestion, and shortness of breath. She denies fevers, chills, and sick contacts. She also denies chest pain. In the ED patient was noted to me mildly hypoxic responding well to 2 L/min O2. CTPE notable only for mild bronchitis. Patient is being admitted for observation due to hypoxia. History Information - Allergies/Home Medication List Allergies/Adverse Reactions: Penicillins Allergy (Intermediate, Verified 11/02/17 01:39) Rash Sulfa (Sulfonamide Antibiotics) Allergy (Verified 11/02/17 01:39) I have personally reviewed and updated: family history, medical history - Past Medical History hypertension Additional medical history: CAD (s/p CABG), L leg DVT 2016, UTI and PNAs prev, SBO 03/05, OA - Surgical History Reports: appendectomy, coronary bypass surgery Additional surgical history: B knee surgeries - Family History Additional family history: no family hx of VTE - Social History Smoking Status: Never smoked Additional social history: ambulatory, no lengthy periods of sitting Review of Systems Review of Systems: ROS: 10pt was reviewed & negative except for what was stated in HPI & below Physical Exam Physical Exam: Temp Pulse Resp BP Pulse Ox 36.6 C 63 18 138/80 H 94 11/02/17 01:35 11/02/17 03:31 11/02/17 03:31 11/02/17 03:31 11/02/17 03:31 Constitutional: no apparent distress, obese Eyes: PERRL, EOMI Ears, Nose, Mouth, Throat: moist mucous membranes, no oral mucosal ulcers Cardiovascular: regular rate and rhythym, no murmur, rub, or gallop Respiratory: no respiratory distress Gastrointestinal: normoactive bowel sounds, soft, non-tender abdomen Skin: warm, normal color Musculoskeletal: full muscle strength, no muscle tenderness Neurologic: CN II-XII Intact Psychiatric: interacting appropriately, not anxious Lab Data & Imaging Review 11/02/17 02:17 11/02/17 02:17 WBC 6.78 10^3/uL (3.80-9.50) 11/02/17 02:17 RBC 5.21 10^6/uL (4.18-5.33) 11/02/17 02:17 Hgb 14.2 g/dL (12.6-16.3) 11/02/17 02:17 Hct 43.0 % (38.0-47.0) 11/02/17 02:17 MCV 82.5 fL (81.5-99.8) 11/02/17 02:17 MCH 27.3 pg (27.9-34.1) L 11/02/17 02:17 MCHC 33.0 g/dL (32.4-36.7) 11/02/17 02:17 RDW 14.6 % (11.5-15.2) 11/02/17 02:17 Plt Count 250 10^3/uL (150-400) 11/02/17 02:17 MPV 9.6 fL (8.7-11.7) 11/02/17 02:17 Neut % (Auto) 50.1 % (39.3-74.2) 11/02/17 02:17 Lymph % (Auto) 33.6 % (15.0-45.0) 11/02/17 02:17 Marshall % (Auto) 10.3 % (4.5-13.0) 11/02/17 02:17 Eos % (Auto) 5.2 % (0.6-7.6) 11/02/17 02:17 Baso % (Auto) 0.4 % (0.3-1.7) 11/02/17 02:17 Nucleat RBC Rel Count 0.0 % (0.0-0.2) 11/02/17 02:17 Absolute Neuts (auto) 3.39 10^3/uL (1.70-6.50) 11/02/17 02:17 Absolute Lymphs (auto) 2.28 10^3/uL (1.00-3.00) 11/02/17 02:17 Absolute Monos (auto) 0.70 10^3/uL (0.30-0.80) 11/02/17 02:17 Absolute Eos (auto) 0.35 10^3/uL (0.03-0.40) 11/02/17 02:17 Absolute Basos (auto) 0.03 10^3/uL (0.02-0.10) 11/02/17 02:17 Absolute Nucleated RBC 0.00 10^3/uL (0-0.01) 11/02/17 02:17 Immature Gran % 0.4 % (0.0-1.1) 11/02/17 02:17 Immature Gran # 0.03 10^3/uL (0.00-0.10) 11/02/17 02:17 Sodium 141 mEq/L (135-145) 11/02/17 02:17 Potassium 4.0 mEq/L (3.5-5.2) 11/02/17 02:17 Chloride 108 mEq/L (97-110) 11/02/17 02:17 Carbon Dioxide 23 mEq/l (22-31) 11/02/17 02:17 Anion Gap 10 mEq/L (8-16) 11/02/17 02:17 BUN 20 mg/dL (7-23) 11/02/17 02:17 Creatinine 0.9 mg/dL (0.6-1.0) 11/02/17 02:17 Estimated GFR > 60 11/02/17 02:17 Glucose 92 mg/dL (70-100) 11/02/17 02:17 Calcium 8.8 mg/dL (8.5-10.4) 11/02/17 02:17 Troponin I < 0.012 ng/mL (0.000-0.034) 11/02/17 02:17 Imaging Review: CTPE Prelim: no visible PE bronchitis d/w ML at 325 Visualized and Interpreted EKG results: Yes EKG Interpretation: Positive for: normal sinsus rhythm Assessment & Plan Assessment: 76 yo F w/ hx of CAD and DVT presents with hypoxia likely 2/2 viral bronchitis. Plan: 1. Bronchitis - Most likely viral; presenting with fatigue, cough, and shortness of breath. Not meeting any SIRS criteria suggesting this is likely a mild viral illness. CTPE negative for VTE. - Supportive care with APAP, albuterol PRN - Observe off of antibiotics - Respiratory PCR, procalcitonin 2. AHRF - Mild, requiring 2 L/min O2 via NC at the moment. She does not wear O2 at baseline. I suspect this is related to above. - Incentive spirometry, wean O2 as able 3. Hx DVT - On apixaban; CTPE negative for PE this admission. 4. CAD - S/p CABG in 2013, denies chest pain. Diet - Regular Code - Full Ppx - Apixaban Dispo - Admit under observation status
[2017-11-02] MEDS: APIXABAN 5 MG TAB PO SCH ×3 (13:22→21:10)
[2017-11-02] MEDS: METOPROLOL TARTRATE 25 MG TAB PO SCH ×2 (13:22→21:05)
[2017-11-02] MEDS: ALBUTEROL 3 ML DEYVIAL IH SCH ×2 (15:18→21:00)
--- NOTE | 2017-11-02 15:31 | HOSPPROG ---
Hospitalist Progress Note Assessment/Plan: # AHRF - 88% on ra on arrival. I wonder if this is chronic. reports they frequently check her sats at home and she is 88%. She takes a few deep breaths and then is in the the low 90's. This has also happened at outpt clinic visits. Bronchitis is possible, but not a lot of URI symptoms. Query if PENNY or obesity hypoventilation is playing a role, though she denies snoring. -check bnp and echo (prior echo in 2014 reviewed, nl EF, +diastolic dysfunction) -schedule nebs QID to see if this helps -guaifenesin -wean O2 as able, may warrant home O2 if she qualifies # SOB - cardiac eval and tx for bronchitis as above # Hx DVT - CTPE negative for PE -cont eliquis # CAD - S/p CABG in 2013, denies chest pain. Diet - Regular Code - Full Ppx - obs Subjective: Pt feels ok. Denies SOB at rest. Not coughing much. Denies congestion, sore throat or fevers. Non-smoker. No CP. Objective: Vital Signs Temp Pulse Resp BP Pulse Ox 36.8 C 71 14 149/88 H 95 11/02/17 15:15 11/02/17 15:15 11/02/17 15:20 11/02/17 15:15 11/02/17 15:20 Microbiology 11/02/17 04:48 Respiratory Panel (PCR) - Final Nasal, Sinus - Unspecified No Organism Detected 11/01/17 11/02/17 11/03/17 05:59 05:59 05:59 Intake Total 0 Output Total 300 Balance 0 -300 - Physical Exam Constitutional: no apparent distress Eyes: PERRL Ears, Nose, Mouth, Throat: moist mucous membranes Cardiovascular: regular rate and rhythym Respiratory: no respiratory distress, clear to auscultation Gastrointestinal: normoactive bowel sounds, soft, non-tender abdomen Skin: warm Musculoskeletal: full muscle strength, other (LLE edema) Neurologic: AAOx3 Psychiatric: interacting appropriately ICD10 Worksheet Patient Problems: Problems Problem Status Onset Acute bronchitis Acute Dyspnea Acute Hypoxia Acute Iliac DVT (deep venous thrombosis) Acute Left leg DVT Acute Atrial fibrillation Chronic Coronary artery disease Chronic History of coronary artery stent placement Chronic Hyperlipidemia Chronic Hypertension Chronic
[2017-11-02] MEDS: guaiFENesin 600 MG TAB.ER PO SCH ×2 (16:01→21:05)
[2017-11-03] MEDS: ALBUTEROL 3 ML DEYVIAL IH SCH ×3 (05:08→16:28)
[2017-11-03] MEDS: APIXABAN 5 MG TAB PO SCH (08:53)
[2017-11-03] MEDS: guaiFENesin 600 MG TAB.ER PO SCH (08:53)
[2017-11-03] MEDS: METOPROLOL TARTRATE 25 MG TAB PO SCH (08:53)
--- NOTE | 2017-11-03 10:14 | ECHO ---
[email or web address] [address] [address] Main: [phone] Fax: Transthoracic Echocardiogram Name: ANGELA SWARTZ MR#: [id number] Study Date: 11/02/2017 Study Time: 05:23 PM Date of : 1940 Age: 76 year(s) Height: 167.6 cm (66 in.) Weight: 108.41 kg (239 lb.) BSA: 2.16 m2 Gender: Female Examination: Echo Indication: Shortness of breath, h/o cabg, diastolic dysfunction Image Quality: Technically Difficult Contrast: Requested by: Melissa Romo BP: 149 mmHg/88 mmHg Heart Rate: Rhythm: Indication: Shortness of breath, h/o cabg, diastolic dysfunction Procedure Staff Hoop Maker Machine: Lorraine Pruitt [facility] Reading Physician: Jimbo Guzman MD Requesting Provider: Conclusions: Normal size left ventricle. Mild concentric LV hypertrophy. Cannot rule out wall motion abnormality due to poor endocardial resolution. Wall motion is, however, grossly normal. EF is 68 %. Diastolic dysfunction is present. . Trivial to mild mitral regurgitation. Trivial to mild tricuspid valve regurgitation. The pulmonary artery pressure is normal. No pericardial effusion. Measurements: Chambers Valvular Assessment AV/MV Valvular Assessment TV/PV Normal Normal Normal Name Value Range Name Value Range Name Value Range Ao Shani (MM): 2.6 cm (2.2 cm-3.7 AV Vmax: 1.16 m/s (1 m/s-1.7 TR Vmax: 2.44 mm/s ( - ) cm) m/s) TR PGmax: 24 mmHg ( - ) IVSd (2D): 1.0 cm (0.6 cm-1.1 AV maxP mmHg ( - ) cm) LVOT Vmax: 0.68 m/s (0.7 m/s-1.1 LVDd (2D): 4.1 cm (3.9 cm-5.3 m/s) cm) MV E Vmax: 0.46 m/s ( - ) LVDs (2D): 2.6 cm (2.1 cm-4 MV A Vmax: 0.91 m/s ( - ) cm) MV E/A: 0.51 ( - ) LVPWd (2D): 1.0 cm ( - ) LVEF (2D): 68 (>=54 %) RVDd(2D): 4.2 cm (1.9 cm-3.8 cmmm) Continued Measurements: Valvular Assessment AV/MV Patient: ANGELA SWARTZ Study Date: 11/02/2017 Page 1 of 2 05:23 PM Name Value MV DecTime: 261 m/s Additional Vessels Name Value Ao Ascendin.0 cm Findings: Left Ventricle: Normal size left ventricle. Mild concentric LV hypertrophy. Cannot rule out wall motion abnormality due to poor endocardial resolution. EF is 68 %. Diastolic dysfunction is present. . Right Ventricle: Mildly dilated right ventricle. Normal RV function. Left Atrium: The left atrium is normal in size. Right Atrium: The right atrium is normal in size. Mitral Valve: The mitral valve is normal in appearance and function. Trivial to mild mitral regurgitation. No mitral stenosis is present. Aortic Valve: Aortic valve is not well visualized. There is no significant aortic valve regurgitation. No aortic valve stenosis is present. Tricuspid Valve: The tricuspid valve is normal in appearance and function. Trivial to mild tricuspid valve regurgitation. The pulmonary artery pressure is normal. Pulmonic Valve: Pulmonary valve not well visualized. Aorta: Normal size aortic root measuring 2.6 cm. Normal size ascending aorta measuring 3.0 cm. IVC: The IVC is not well visualized. Pericardium: No pericardial effusion. There is pericardial fat. (No Signature Object) Patient: ANGELA SWARTZ Study Date: 11/02/2017 Page 2 of 2 05:23 PM D:_[id number]
--- NOTE | 2017-11-03 11:53 | ASMTCMCOM ---
CM Note CM Note Notes: Pt has been admitted with dyspnea. Hx CABG 2013, HTN. She is discharging home today with her and no CM needs. Date Signed: 11/03/2017 11:53 AM Electronically Signed By:NOMAN John
--- NOTE | 2017-11-03 15:29 | ASMTCMCOM ---
CM Note CM Note Notes: Please disregard previous CM note. Pt is not discharging home today. She has possible bronchitis and is currently on 3L O2. She is currently observation status. CM will follow for any d/c needs. Date Signed: 11/03/2017 03:28 PM Electronically Signed By:NOMAN John
--- NOTE | 2017-11-03 15:56 | PDDCSUM ---
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 There was some cough, no fevers or chest pain and no leg swelling. Her symptoms actually resolved entirely within 24 hr without any specific therapy administered. The patient denies any history of previous episodes of shortness of breath or any lung disease and she has never been a smoker. She does have heart disease in the way of previous bypass surgery but there was no evidence of ischemia or heart failure or arrhythmia at this time. The echocardiogram showed no evidence of systolic disease, no valvular disease and there was stable appearing LVH and diastolic dysfunction by echo. There was no pulmonary hypertension. A CT scan showed no pneumonia, no PE, no evidence of obstructive or emphysematous change, and was remarkable mainly for some minimal atelectasis and perhaps some bronchitis but this was a very subtle indefinite abnormality. Bedside spirometry was performed and was entirely normal in fact all of her numbers were above average for age in size. The on this final day of her hospital stay the patient while sitting in a chair at rest during my observation had intermittently normal oxygen saturation of 90- 91 but mostly sat at 88-89%. When I asked her to take a few deeper breaths her oxygen saturations came up quite well to 93-94%. There has been no wheezing noted during her stay here. It is my suspicion that she has an obesity hypoventilation syndrome and that her current episode was triggered either by viral illness with cough or perhaps some change in air quality as there has been quite a bit of heavy wean here the last several days. I suspect she is chronically hypoxemic as she feels perfectly normal with her oxygen saturation at 88-89% and has no difficulty walking in the hallway at her usual walking speed. The patient does not have pulmonary hypertension, but given her obesity I would not be surprised if she might also have sleep apnea or at least worsening nocturnal hypoxemia. At this point I feel she is stable to go home and she is asymptomatic will not prescribe home oxygen. However I think it will be very important for her to have further assessment with a hr specialist to make sure that there is no other abnormality that were missing here and get general recommendations on management of her hypoventilatory syndrome. I also think it is very important for her to get a sleep study done to check for sleep apnea or worsening nocturnal hypoxemia either of which should probably be treated fairly aggressively. PENDING TEST RESULTS: None MEDICATION CHANGES: None FOLLOW-UP PLAN: Have recommended outpatient consultation at [facility] to further evaluate for obesity hypoventilation syndrome or other cause of her respiratory issues. Have recommended outpatient sleep study to look for sleep apnea or nocturnal hypoxemia of other cause Have recommended that she see Dr. Araiza within 1-2 weeks, her primary care physician to facilitate. Greater than 35 minutes bedside and care coordination time today
[2017-11-03 16:01] VITALS: BP 113/87; PULSE 76; TEMP 98
[2017-11-03 16:41] VITALS: RESP 18; O2SAT 95
== END 2017-11-03 17:46 | disposition home or self-care (01) ==
LOC: F1N 05:02
PROVIDERS: ADMIT Student in an Organized Health Care Education/Training Program; ATTEND Student in an Organized Health Care Education/Training Program
DX: R06.09 Other forms of dyspnea (principal); R09.02 Hypoxemia; I25.10 Atherosclerotic heart disease of native coronary artery without angina pectoris; I50.32 Chronic diastolic (congestive) heart failure; Z95.1 Presence of aortocoronary bypass graft; I10 Essential (primary) hypertension; E66.9 Obesity, unspecified; Z86.718 Personal history of other venous thrombosis and embolism; Z95.5 Presence of coronary angioplasty implant and graft
CPT/HCPCS: 71275; 93005; 93306; 99285; G0378; J7613; Q9967

== ENCOUNTER → 2018-01-01 | Outpatient (CLI) | payer BC ==
[~2018-01-01] MED LIST changes: +GADOBUTROL 10 ML VIAL IVP ONE; -IOPAMIDOL (ISOVUE 370) 100 ML BTL IV ONE
== END ==
LOC: FIMAGING 18:14
PROVIDERS: ATTEND Internal Medicine
DX: G31.9 Degenerative disease of nervous system, unspecified (principal); R41.3 Other amnesia
CPT/HCPCS: A9585

== ENCOUNTER 2018-01-12 10:04 | Emergency (ER) | payer BC ==
--- NOTE | 2018-01-12 10:29 | CPEKG ---
Heart Rate: 71 RR Interval: 845 P-R Interval: 160 QRSD Interval: 84 QT Interval: 432 QTC Interval: 470 P Ros[place]: -6 QRS [place]: -15 T Wave [place]: 3 EKG Severity - ABNORMAL ECG - EKG Impression: SINUS RHYTHM EKG Impression: PROBABLE INFERIOR INFARCT, AGE INDETERMINATE EKG Impression: CONSIDER ANTERIOR INFARCT Electronically Signed By: Gale Mann 12-Jan-2018 15:01:34
--- NOTE | 2018-01-12 10:45 | EDPHY ---
H & P Stated Complaint: SOB x 1 month -not improving -no pain Time Seen by Provider: 01/12/18 10:15 HPI/ROS: CHIEF COMPLAINT: Low oxygen reading last night HISTORY OF PRESENT ILLNESS: 77-year-old female with CAD, prior CABG and DVT presents with a low oxygen reading last night. Over the past 2 months, she has had difficulty sleeping and often awakes in the middle of the night feeling short of breath. Her primary care physician ordered a sleep study, but she has not scheduled the sleep study yet. Early this morning, her checked her oxygen level and it was 84% on room air. For this reason, they went to urgent care and then were referred to the emergency department. She denies feeling short of breath during the daytime at rest or with exertion. No chest discomfort, cough or fever. REVIEW OF SYSTEMS: complete 10 point ROS negative except at noted in the HPI - Personal History Tetanus Vaccine Date: 2003 - Medical/Surgical History Hx Asthma: No Hx Chronic Respiratory Disease: No Hx Diabetes: No Hx Cardiac Disease: Yes Hx Renal Disease: No Hx Cirrhosis: No Hx Alcoholism: No Hx HIV/AIDS: No Hx Splenectomy or Spleen Trauma: No Other PMH: Stents x4 , HTN, CABG-2013, DVT 05/2017, APPY, tonsillectomy, short term memory issues - Social History Smoking Status: Never smoked Additional Social History: - Physical Exam Exam: General Appearance: Alert, pleasant Eyes: Pupils equal and round, no conjunctival pallor or injection ENT, Mouth: Mucous membranes moist Neck: Normal inspection Respiratory: Normal respiratory rate, lungs are clear to auscultation Cardiovascular: Regular rate and rhythm Gastrointestinal: Abdomen is soft and nontender Neurological: A&O, nonfocal, normal gait Skin: Warm and dry Extremities: Normal inspection Psychiatric: Mood and affect normal Constitutional: Initial Vital Signs Temperature (C) 37.0 C 01/12/18 10:07 Heart Rate 91 01/12/18 10:07 Respiratory Rate 18 01/12/18 10:07 Blood Pressure 138/87 H 01/12/18 10:07 O2 Sat (%) 91 L 01/12/18 10:07 O2 Delivery Mode Room Air O2 (L/minute) 2 Allergies/Adverse Reactions: Penicillins Allergy (Intermediate, Verified 11/02/17 01:39) Rash Sulfa (Sulfonamide Antibiotics) Allergy (Verified 11/02/17 01:39) Home Medications: Medication Instructions Recorded Metoprolol Tartrate [Lopressor 25 12.5 mg PO BID #30 tab 12/16/13 mg (*)] Apixaban [Eliquis] 5 mg PO BID #60 tab 05/24/17 Medical Decision Making - Diagnostics EKG Interpretation: EKG interpreted by me reveals normal sinus rhythm, rate 71, inferior Q-waves, poor R-wave progression, low voltage in the anterior leads. Imaging Results: Chest X-Ray 01/12/18 10:22 Impression: 1. Minimal airways disease and left basilar atelectasis versus scarring. 2. No interstitial edema or effusion. ED Course/Re-evaluation: This patient presents with nocturnal dyspnea and hypoxia. Oxygen saturation 90 % on room air. She ambulated throughout the emergency department on pulse oximetry and oxygen saturation remained 90% on room air. She was not short of breath with ambulation. EKG reveals no evidence of ischemia or dysrhythmia. Chest x-ray is unremarkable. Laboratory tests reveal a D-dimer of 0.65, which is a normal result accounting for the patient's age. After careful consideration, I feel this patient is safe and stable for discharge home. She has nocturnal hypoxia, likely related to sleep apnea. There is no evidence of underlying cardiopulmonary etiology for hypoxia and she is not hypoxic in the emergency department. Differential Diagnosis: Differential diagnosis includes though it is not limited to pneumonia, pneumothorax, pulmonary embolism, aortic dissection, pericarditis, acute coronary syndrome. - Data Points Laboratory Results: Laboratory Results 01/12/18 11:15 01/12/18 11:15 Departure - Departure Disposition: Home, Routine, Self-Care Clinical Impression: Nocturnal hypoxia Condition: Good Instructions: Dyspnea (ED) Additional Instructions: Call to make an appointment for a sleep study. Return for any concerns. Referrals: Tavares Araiza MD [Primary Care Provider] - As per Instructions
[2018-01-12 11:21] LABS: PLATELET COUNT 251 10^3/uL (150-400)
[2018-01-12 12:24] VITALS: BP 127/80
== END 2018-01-12 12:24 | disposition home or self-care (01) ==
DX: R09.02 Hypoxemia (principal); I10 Essential (primary) hypertension; Z79.01 Long term (current) use of anticoagulants; Z95.1 Presence of aortocoronary bypass graft; Z95.5 Presence of coronary angioplasty implant and graft

== ENCOUNTER 2018-05-17 11:30 | Inpatient (IN) | payer BC ==
[2018-05-17 12:56] LABS: PLATELET COUNT 257 10^3/uL (150-400)
--- NOTE | 2018-05-17 13:14 | EDPHY ---
H & P Time Seen by Provider: 05/17/18 12:11 HPI/ROS: CHIEF COMPLAINT: Shortness of breath HISTORY OF PRESENT ILLNESS: The patient is a 77-year-old female with a history of a ongoing shortness of breath. The patient states her symptoms started last October. Since that time she has had intermittent episodes of dyspnea. Her symptoms worsened last evening. She had increased work of breathing both last night and today. She has had no cough or fever. She was recently started on CPAP for obstructive sleep apnea but does not tolerated at night. She is not normally on oxygen currently, but the request she be sent home with oxygen in the future. REVIEW OF SYSTEMS: 10 systems were reveiwed and are negative with the exception of the elements mentioned in the history of present illness. Past Medical/Surgical History: Includes coronary artery disease, hypertension, DVT, Past surgical history: Includes CABG, appendectomy, tonsillectomy Social history: Patient lives at home. She is . Smoking Status: Never smoked Physical Exam: Vitals noted. 36.5, 127/69, 77, 16, 92% on room air GENERAL: Well-appearing, in no acute distress, alert. HEENT: Eyes normal to inspection, normal pharynx, no signs of dehydration. NECK: Normal, supple. RESPIRATORY: Clear to auscultation bilaterally, no rales, rhonchi or wheezing. CVS: Regular rate and rhythm, no rubs, murmurs, or gallops. ABDOMEN: Soft, nontender, nondistended, no organomegaly. BACK: Normal to inspection, no CVA tenderness. SKIN: Normal color, no rash, warm, dry. No pallor. EXTREMITIES: Mild bilateral pedal edema, no calf tenderness, no Homans sign or cords, no joint swelling. NEURO/PSYCH: Alert and oriented, normal mood and affect, normal motor sensory exam. No obvious cranial nerve deficit. Constitutional: Initial Vital Signs Temperature (C) 36.5 C 05/17/18 11:37 Heart Rate 77 05/17/18 11:37 Respiratory Rate 16 05/17/18 11:37 Blood Pressure 127/69 H 05/17/18 11:37 O2 Sat (%) 92 05/17/18 11:37 O2 Delivery Mode Nasal Cannula O2 (L/minute) 2 Allergies/Adverse Reactions: Penicillins Allergy (Intermediate, Verified 11/02/17 01:39) Rash Sulfa (Sulfonamide Antibiotics) Allergy (Verified 11/02/17 01:39) Home Medications: Medication Instructions Recorded Metoprolol Tartrate [Lopressor 25 12.5 mg PO BID #30 tab 12/16/13 mg (*)] Apixaban [Eliquis] 5 mg PO BID #60 tab 05/24/17 Lipitor 05/17/18 Medical Decision Making - Diagnostics Imaging Results: Imaging Impressions Chest X-Ray 05/17/18 12:40 Impression: 1. Sequela of prior CABG. 2. Basilar diskoid subsegmental atelectasis and/or parenchymal fibrosis. Chest/Thorax CTA 05/17/18 13:19 Impression: 1. No evidence of thrombopulmonary embolic disease. 2. Minimal left basilar atelectasis. No edema or effusion. 3. Stigmata of coronary artery bypass grafting similar to October 2017. Findings discussed with Emergency Department physician, Carmella Reynolds on , 14:25. ED Course/Re-evaluation: In the emergency department discussed possible etiologies with the patient. I answered all her questions. An IV was placed. Laboratory studies were obtained. The patient's CBC and chemistry unremarkable. The patient's troponin was negative. D-dimer is elevated at 0.86. Patient has normal creatinine. I discussed results with the patient. Due to her shortness of breath and elevated D-dimer she will have a CT angiogram. She consented. EKG shows normal sinus rhythm, [normal rate, normal axis, normal intervals]. There are . Q-wave in III, aVF. CT angiogram: Please refer the dictated report by Dr. Lara. No acute disease noted. No pulmonary embolus. I discussed the results with the patient and . I answered all her questions. Patient ambulated in the emergency department off oxygen to check oxygen saturation level. Patient ambulated with oxygen saturation dropping into the mid 80s. I discussed case with Dr. Castro. She will admit the patient. Differential Diagnosis: My differential includes but is not limited to bronchitis, pneumonia, pneumothorax, pulmonary embolus, ACS, acute AK - Data Points Laboratory Results: Laboratory Results 05/17/18 11:54 05/17/18 11:54 05/17/18 05/17/18 05/17/18 12:58 11:54 11:54 WBC RBC Hgb Hct MCV MCH MCHC RDW Plt Count MPV Neut % (Auto) Lymph % (Auto) Winston % (Auto) Eos % (Auto) Baso % (Auto) Nucleat RBC Rel Count Absolute Neuts (auto) Absolute Lymphs (auto) Absolute Monos (auto) Absolute Eos (auto) Absolute Basos (auto) Absolute Nucleated RBC Immature Gran % Immature Gran # D-Dimer 0.86 ug/mLFEU H ug/mLFEU (0.00-0.50) Sodium 142 mEq/L mEq/L (135-145) Potassium 3.8 mEq/L mEq/L (3.3-5.0) Chloride 107 mEq/L mEq/L (97-110) Carbon Dioxide 25 mEq/l mEq/l (22-31) Anion Gap 10 mEq/L mEq/L (8-16) BUN 12 mg/dL mg/dL (7-23) Creatinine 0.9 mg/dL mg/dL (0.6-1.0) Estimated GFR 60 Glucose 130 mg/dL H mg/dL (70-100) Calcium 9.4 mg/dL mg/dL (8.5-10.4) POC Troponin I 0.00 ng/mL ng/mL (0.00-0.08) NT-Pro-B Natriuret Pep 475 pg/mL H pg/mL (0-450) 05/17/18 11:54 WBC 6.63 10^3/uL 10^3/uL (3.80-9.50) RBC 5.10 10^6/uL 10^6/uL (4.18-5.33) Hgb 14.5 g/dL g/dL (12.6-16.3) Hct 43.6 % % (38.0-47.0) MCV 85.5 fL fL (81.5-99.8) MCH 28.4 pg pg (27.9-34.1) MCHC 33.3 g/dL g/dL (32.4-36.7) RDW 14.0 % % (11.5-15.2) Plt Count 257 10^3/uL 10^3/uL (150-400) MPV 10.3 fL fL (8.7-11.7) Neut % (Auto) 62.3 % % (39.3-74.2) Lymph % (Auto) 26.4 % % (15.0-45.0) Winston % (Auto) 6.9 % % (4.5-13.0) Eos % (Auto) 3.5 % % (0.6-7.6) Baso % (Auto) 0.6 % % (0.3-1.7) Nucleat RBC Rel Count 0.0 % % (0.0-0.2) Absolute Neuts (auto) 4.13 10^3/uL 10^3/uL (1.70-6.50) Absolute Lymphs (auto) 1.75 10^3/uL 10^3/uL (1.00-3.00) Absolute Monos (auto) 0.46 10^3/uL 10^3/uL (0.30-0.80) Absolute Eos (auto) 0.23 10^3/uL 10^3/uL (0.03-0.40) Absolute Basos (auto) 0.04 10^3/uL 10^3/uL (0.02-0.10) Absolute Nucleated RBC 0.00 10^3/uL 10^3/uL (0-0.01) Immature Gran % 0.3 % % (0.0-1.1) Immature Gran # 0.02 10^3/uL 10^3/uL (0.00-0.10) D-Dimer Sodium Potassium Chloride Carbon Dioxide Anion Gap BUN Creatinine Estimated GFR Glucose Calcium POC Troponin I NT-Pro-B Natriuret Pep Point of Care Test Results: Chemistry 05/17/18 12:58 POC Troponin I 0.00 ng/mL ng/mL (0.00-0.08) Departure - Departure Disposition: [facility] Inpatient Acute Clinical Impression: Dyspnea Qualifiers: Dyspnea type: unspecified Qualified Code(s): R06.00 - Dyspnea, unspecified Condition: Good
[2018-05-17] MEDS ORDERED: IOPAMIDOL (ISOVUE 370) 100 ML BTL IV ONE (13:25)
[2018-05-17] MEDS ORDERED: ACETAMINOPHEN 325 MG TAB PO PRN (17:28)
[2018-05-17] MEDS ORDERED: ONDANSETRON 4 MG/2 ML VIAL IVP PRN (17:28)
--- NOTE | 2018-05-17 18:25 | GHP ---
DATE OF ADMISSION: 05/17/2018 CHIEF COMPLAINT: Shortness of breath. HISTORY: This is a 77-year-old female who comes in with shortness of breath. She has had worsening shortness of breath since last October but it got acutely worse in the last 24 hours. She denies any c hest pain. There has been no fever or cough. She was in the hospital in October and noted to have a s aturation of 88% on room air and she was felt to have an element of obesity hypoventilation syndrome but she was not sent home on home oxygen. She recently had a sleep study and was started on CPAP 1 w solomon ago. She is tolerating it poorly. There was no oxygen in her CPAP. Her has a pulse oxi meter and says daytime oxygen saturations are usually around 91%. Upon arrival at the emergency room , oxygen saturations were lower in the 80s. Her would like her to go home with home oxygen. PAST MEDICAL HISTORY: 1. Coronary artery disease, status post previous stents and CABG in 2013. 2. Congestive heart failure secondary to diastolic dysfunction. 3. Hypertension. 4. 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 5. Dementia. 6. Obstructive sleep apnea, on CPAP. 7. Probable obesity hypoventilation syndrome. PAST SURGICAL HISTORY: Appendectomy. MEDICATIONS: Please see computer record for full detailed list. ALLERGIES: To penicillin, sulfa. SOCIAL HISTORY: No smoking. No alcohol. She lives with her . CODE STATUS: DNR. REVIEW OF SYSTEMS: Complete review of systems obtained. Review of systems negative regarding consti tutional, HEENT, GI, pulmonary, cardiovascular, , hematology, skin, muscular, endocrine, psych exce pt for positives and negatives as in HPI. FAMILY HISTORY: Reviewed, noncontributory to presenting complaint. PHYSICAL EXAMINATION: GENERAL: Well-developed, well-nourished female, in no acute distress. VITAL SIGNS: Temperature is 36.5, pulse 61, blood pressure 115/71, saturating 92% on room air. EYES: Nor mal conjunctivae, pupils reactive to light. ENT normal ears, nose. Hearing intact. Normal teeth. Oropharynx moist. NECK: Trachea midline. No thyromegaly. CHEST: Normal effort. LUNGS: Clear to aus cultation bilaterally. CARDIOVASCULAR: Regular rate and rhythm. No murmur. No lower extremity edema . ABDOMEN: Soft, nontender. No hepatosplenomegaly. SKIN: Warm, dry, intact. No rash. MUSCULOSK ELETAL: No cyanosis or clubbing. Strength 5/5 upper and lower extremities. NEUROLOGIC: Cranial ne rves intact, normal sensation to light touch. PSYCHIATRIC: Alert and oriented x3. Normal affect. N ormal judgment. Normal memory. LABS: White count 6.63, hematocrit 43.6, platelets 257, sodium 142, potassium 3.8, chloride 107, bic arb 25, BUN 12, creatinine 0.9, glucose 130. Troponins negative. D-dimer 0.86. BNP is 475. EKG re viewed by me. My personal interpretation is normal sinus rhythm, anterior T-wave inversions. CT ang iogram of the chest is negative for PE. Medical records review, reviewed old chart. Her last hospitalization was in October. Her last echocar diogram was very recently with an EF of 68%. ASSESSMENT/PLAN: 1. Dyspnea. It sounds like she is intermittently hypoxic although does say home pulse oxime ter often reads in the 90s. It is unclear to me why she got acutely worse with her shortness of alma th in the last 24 hours. Probably need to rule out an anginal equivalent. We will do exercise stres s test in the morning. If this is negative, then she probably just needs to have home oxygen set up. Especially if her room-air saturation persists in the low 80s as it was in the emergency room. 2. Obstructive sleep apnea. Continue CPAP at night. She probably has an element of obesity hypoven tilation as well explaining her daytime hypoxemia. 3. Coronary artery disease. Status post previous stents and eventual coronary artery bypass graft i n 2013. I do not see a recent stress test in our records, so workup as above. 4. Chronic diastolic congestive heart failure. She is well compensated. No evidence of current pul monary edema. 5. Recurrent deep vein thrombosis on lifelong anticoagulation. Continue Eliquis. 6. Dementia. This is of unclear severity. She appears appropriate at this time. CODE STATUS: DNR. ADMISSION STATUS: 1. Will admit to observation as she may be able go home tomorrow if stress testing is negative and h ome oxygen can be arranged. 2. DVT number. She is chronically anticoagulated on Eliquis. /[id number]/MODL
[2018-05-17] MEDS: EZETIMIBE 10 MG TAB PO SCH (20:11)
[2018-05-17] MEDS: APIXABAN 5 MG TAB PO SCH (20:11)
[2018-05-17] MEDS ORDERED: METOPROLOL TARTRATE 25 MG TAB PO SCH (21:00)
[2018-05-18] MEDS: APIXABAN 5 MG TAB PO SCH ×2 (10:19→21:18)
[2018-05-18] MEDS ORDERED: REGADENOSON 0.4 MG/5 ML SYR IVP ONE (10:22)
--- NOTE | 2018-05-18 11:28 | CPR ---
PROCEDURE: Lexiscan MPI Study SUPERVISING ACQUISITION ASSOCIATE: Dr. Caldwell INDICATION FOR PROCEDURE: Dyspnea on exertion, history of CAD, unable to run on treadmill. PRE: After obtaining informed consent, initial electrocardiogram done, showing sinus rhythm, leftwar d axis, Q-waves noted in inferior leads, with inverted T-waves in V1 through V3. Patient denies ches t pain, pressure, or symptoms suggesting of ischemia. Initial blood pressure 118/75, saturating 93% on 2 L nasal cannula. INJECTION: Patient was given Lexiscan slow IV push, followed by nuclear isotope. She remained asymp tomatic of any symptoms of any chest pain or pressure. She was noted to have an increased heart rate up to 79 BPM within 2 minutes of injection, but no significant EKG changes. No arrhythmias. Within 5 minutes of injection, vital signs remained stable, she remained asymptomatic, no significant EKG c hanges. Final blood pressure of 107/61, saturating 91% on room air. IMPRESSION: 77-year-old female with known history of coronary artery disease, with dyspnea, being ev aluated for cardiac ischemia, Lexiscan injection done, no significant EKG changes with injection, no arrhythmias, patient asymptomatic. Vital signs are stable. She will be taken down to [facility] for post-stress imaging. /[id number]/MODL
--- NOTE | 2018-05-18 11:32 | CPEKG ---
Test Reason : OPEN Blood Pressure : / mmHG Vent. Rate : 060 BPM Atrial Rate : 059 BPM P-R Int : 163 ms QRS Dur : 085 ms QT Int : 453 ms P-R-T Axes : 040 -24 016 degrees QTc Int : 453 ms Sinus rhythm Inferior infarct, old Anteroseptal infarct, age indeterminate When compared with ECG of 05/17/2018 at 13:40 change in R wave progression Confirmed by Stacie Caldwell ([id number]) on 05/18/2018 11:31:25 AM Referred By: Confirmed By:Stacie Caldwell
--- NOTE | 2018-05-18 12:14 | ASMTCMCOM ---
CM Note CM Note Notes: 05/18/2018 Case Management Note Pt admitted with shortness of breath with a past medical history of CAD, CHF, HTN, recurrent DVTs, dementia, and obstructive sleep apnea. Stress test planned for today. Met w/ pt and Renan. Son Roby works for the [employer], daughter Carolynn lives in [place], son Jay lives in [place], daughter Kandi lives in [place]. PCP is Dr. Araiza. Both pt and are independent in ADL's, both drive and they live independently in their own home. Awaiting PT/OT evals for d/c recommendations. Case Management d/c poc: anticipating home independent with follow up as directed. Case Management to follow. Date Signed: 05/18/2018 12:13 PM Electronically Signed By:Heather White RN
--- NOTE | 2018-05-18 13:13 | HOSPPROG ---
Hospitalist Progress Note Assessment/Plan: 77y female with c/o SOB. First encounter, chart reviewed. D/W Cardiology and radiology. #Dyspnea -unclear etiol -responding to supplemental oxygen #CAD -hx of stents, CABG -abnormal hugo -resting images tomorrow #Acute hypoxemic resp failure -cont evaluation for etiol -requiring O2 #PENNY -stable #Hx DVT -cont eliquis #Dispo -unclear -needs further evaluation in hospital setting -resting study in am -change to inpt status Subjective: Up in chair. Feels better with oxygen. No pain. Objective: Vital Signs Temp Pulse Resp BP Pulse Ox 36.4 C 64 12 138/84 H 2 L 05/18/18 12:00 05/18/18 12:00 05/18/18 12:00 05/18/18 12:00 05/18/18 12:00 Microbiology 05/17/18 19:20 Respiratory Panel (PCR) - Final Nasal, Sinus - Swab No Organism Detected 05/17/18 05/18/18 05/19/18 05:59 05:59 05:59 Intake Total 800 Balance 800 - Physical Exam Constitutional: no apparent distress, not in pain, obese Eyes: PERRL, anicteric sclera, EOMI Ears, Nose, Mouth, Throat: moist mucous membranes, hearing normal, ears appear normal Cardiovascular: No JVD, No tachycardia, No edema Respiratory: no respiratory distress, no rales or rhonchi, reduced air movement Gastrointestinal: normoactive bowel sounds, No tenderness, No ascites Skin: warm, normal color, No mottled Musculoskeletal: normal joint ROM, no joint effusions, generalized weakness Neurologic: AAOx3 Psychiatric: interacting appropriately, not anxious, not encephalopathic ICD10 Worksheet Patient Problems: Problems Problem Status Onset Iliac DVT (deep venous thrombosis) Acute Left leg DVT Acute Acute bronchitis Acute Dyspnea Acute Hypoxia Acute Coronary artery disease Chronic Hypertension Chronic Hyperlipidemia Chronic History of coronary artery stent placement Chronic Atrial fibrillation Chronic
--- NOTE | 2018-05-18 15:42 | PDMN ---
Medical Necessity Medical necessity: Change to inpt as of 05/18/18 @ 1314. Pt meets inpt criteria per MD order and Pulmonary Disease GRG. Pt admitted w/acute hypoxemic resp failure of unknown etiology requiring supplemental O2. Pt has hx of CAD w/ stents, CABG, CHF sec to diastolic heart failure, obstructive sleep apnea- on CPAP. Anticipate>2MN for further eval/management.
[2018-05-18] MEDS: EZETIMIBE 10 MG TAB PO SCH (21:18)
[2018-05-19] MEDS ORDERED: diphenhydrAMINE 25 MG CAP PO PRN (03:17)
[2018-05-19] MEDS: APIXABAN 5 MG TAB PO SCH (09:52)
[2018-05-19 12:11] VITALS: BP 125/67
--- NOTE | 2018-05-19 13:09 | ASMTLACE ---
LACE Length of stay for Answers: 2 days current admission Acuity / Level of Answers: Yes Care: Did the patient have an inpatient admission? Comorbidities - select Answers: Coronary Artery Disease all that apply Other Notes: HTN; Hx of DVT # of Emergency department Answers: 3-4 visits in the last 6 months Score: 11 Date Signed: 05/19/2018 01:09 PM Electronically Signed By:MAYRA Callejas
--- NOTE | 2018-05-19 13:09 | ASMTCMCOM ---
CM Note CM Note Notes: CM spoke to Sophy Lakhani NP. Pt is being discharged today. PT has cleared pt to d/c home without any needs. CM available for changes. Plan: Independent Date Signed: 05/19/2018 01:08 PM Electronically Signed By:MAYRA Callejas
--- NOTE | 2018-05-19 14:49 | GDS ---
DISCHARGE DIAGNOSES: 1. Acute hypoxemic respiratory failure. 2. Dyspnea. 3. Coronary artery disease. 4. Obstructive sleep apnea. 5. History of deep venous thrombosis. STUDIES AND PROCEDURES: 1. Myocardial perfusion scan. 2. CT angio of the chest. PHYSICAL EXAM: GENERAL: The patient is alert. VITAL SIGNS: Afebrile at 36.8. Pulse is 68, respir atory rate 16. Blood pressure is 125/67. She is saturating 91% on room air. I have seen and evalua santos the patient on the day of discharge. HOSPITAL COURSE: The patient is a 77-year-old female who presents to the emergency room with complai nts of increasing shortness of breath. She was evaluated and diagnosed with: 1. Dyspnea. This is multifactorial in the setting of a history of coronary artery disease and obstr uctive sleep apnea. The patient tells me she does not tolerate her CPAP at night and is not wearing any nocturnal supplementation. During this hospitalization, she received supplemental oxygen therapy and this has significantly helped her shortness of breath. 2. Acute hypoxemic respiratory failure. This has resolved in the hospital setting during the day. However, the patient continues to require nocturnal oxygen with a room air saturation of 83%. She wi ll follow up with the [facility] in the outpatient setting where she has already established car e. She does have a history of obstructive sleep apnea. However, she tells me she does not wear CPAP at night. 3. History of DVT. Her Eliquis has been continued. 4. History of coronary artery disease. A stress test has been performed during this hospitalization with no identifiable intervention. 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 DISPOSITION: The patient will be discharged home independently with her . FOLLOWUP: With the [facility] as well as the patient's primary care physician, Dr. Tavares Araiza . DISCHARGE MEDICATIONS: Please refer to EMR form. I have not discontinued the patient's previously p rescribed home medications nor have I have provided her any prescriptions at the time of disposition. I have spent greater than 35 minutes in the care, coordination, and management of this patient's disp osition. /[id number]/MODL
--- NOTE | 2018-05-20 15:25 | CPEKG ---
Test Reason : OPEN Blood Pressure : / mmHG Vent. Rate : 062 BPM Atrial Rate : 063 BPM P-R Int : 154 ms QRS Dur : 080 ms QT Int : 446 ms P-R-T Axes : -10 -22 020 degrees QTc Int : 453 ms Sinus rhythm Abnormal R-wave progression, early transition Inferior infarct, old Confirmed by Gale Mann ([id number]) on 05/20/2018 3:25:17 PM Referred By: Confirmed By:Gale Mann
== END 2018-05-19 14:27 | disposition home or self-care (01) | DRG 189 ==
LOC: F3E 15:33 → OBSVTOIN 05-18 13:14
PROVIDERS: ADMIT Internal Medicine; ATTEND Internal Medicine
DX: J96.01 Acute respiratory failure with hypoxia (principal); I25.10 Atherosclerotic heart disease of native coronary artery without angina pectoris; I10 Essential (primary) hypertension; G47.33 Obstructive sleep apnea (adult) (pediatric); Z95.1 Presence of aortocoronary bypass graft; Z79.01 Long term (current) use of anticoagulants; Z86.718 Personal history of other venous thrombosis and embolism; I50.30 Unspecified diastolic (congestive) heart failure; F03.90 Unspecified dementia, unspecified severity, without behavioral disturbance, psychotic disturbance, mood disturbance, and anxiety
CPT/HCPCS: 84484-PO; 97161-GP; 97165-GO; 97535-GO; A9500; G0378; J2785; Q9967

== ENCOUNTER 2018-05-23 07:07 | Emergency (ER) | payer BC ==
--- NOTE | 2018-05-23 07:24 | EDPHY ---
HPI/HX/ROS/PE/MDM Narrative: CHIEF COMPLAINT: Shortness of breath HISTORY OF PRESENT ILLNESS: The patient is an anticoagulated (Eliquis) 77 y/o female with a history of CABG , DVT, and CAD complaining of worsening ongoing shortness of breath and chest pain. The patient states her symptoms started last October. Since that time she has had intermittent episodes of dyspnea. On 05/18/18, she was seen in this emergency department for similar symptoms and was admitted to this hospital. During this admission they realized that her O2sats dropped to 83% while sleeping. Patient does have a history of sleep apnea but does not wear her CPAP machine. She does have a history of dementia and seems to have some sundowning and feels very anxious when having to use a CPAP machine at night. While in the hospital, she was treated with supplemental 3 L O2 which improved her symptoms of shortness of breath. Discharge summary from that visit recommends that the patient follow up for supplemental oxygenation as well as follow up with the sleep lab. Patient was seen by her PCP Dr. Araiza who referred her to the sleep lab for further evaluation of her hypoxemia. There is concerned that placing the patient on 3 L at night will lead to diminished respiratory drive. Yesterday she saw a specialist at the [facility], who wanted the patient to start supplemental O2, in conjunction with CPAP, however the patient did not receive a prescription for this. This morning she developed worsening shortness of breath and a 20 minute episode of midsternal chest pressure. The chest pain is a new symptom, which concerned her. She has had no cough or fever. Denies swelling in her legs or history of CHF. Denies recent long trips or being sedentary more than normal No fever, chills, palpitations, vomiting, diarrhea, urinary complaints, headache , lightheadedness. REVIEW OF SYSTEMS: Aside from elements discussed in the HPI, a comprehensive 10-system review of systems was reviewed and is negative. The HPI was mostly obtained from the patient and her as the patient has short term memory problems. PAST MEDICAL HISTORY: Coronary artery disease, hypertension, DVT, CABG, appendectomy, tonsillectomy SOCIAL HISTORY: at bedside, retired, lives in [place] VITAL SIGNS: Reviewed by me GENERAL: Pleasant, well-developed, well-nourished, resting comfortably. HEENT: Atraumatic. Eyes: No icterus, no injection. Mouth: moist mucous membranes. No erythema or lesions. Neck: supple with no adenopathy. LUNGS: Clear to auscultation bilaterally, no wheezes, rhonchi or rales. CARDIAC: Slightly irregular rate and rhythm, no rubs, murmurs or gallops. ABDOMEN: Soft, nontender, nondistended, bowel sounds normal. BACK: No CVA tenderness. EXTREMITIES: No trauma. No edema. Range of motion is normal throughout. NEURO: Alert and oriented, grossly nonfocal. SKIN: Warm and dry, no rash. PSYCHIATRIC: Normal mentation, no agitation. Portions of this note were transcribed by a medical reviewer. I personally performed a history, physical exam, medical decision making, and confirmed accuracy of information the transcribed note. ED Course: The patient is an anticoagulated (Eliquis) 77 y/o female with a history of CABG , DVT, and CAD presenting with worsening ongoing shortness of breath and chest pain. After being admitted to this hospital on 05/18/18, she was recommended to start supplemental oxygen at night, but has not yet done this. On exam her O2Sats are around 89% and she has an slightly irregular heart rate. Her lungs are clear to auscultation and she has no edema in her lower extremities. Labs, EKG, and chest x-ray ordered. 0741: 12-LEAD EKG: Please see the full report in [facility]. My interpretation: Sinus rhythm with a rate of 66, non-specific T-wave changes that are similar to an old EKG. 0802: Patient's POC Troponin is negative. 0804: I reviewed patient's chest x-ray; radiologist reading still pending. 0915: Reassessed patient, she remains hypoxic on room air. I discussed laboratory and imaging findings. 0940: I have placed an order for home oxygen so the patient can use the supplemental oxygen while she is sleeping. 0944: Reassessed patient and discussed plan for home oxygen use. I have advised the patient to follow up with her PCP. Return precautions provided; patient is comfortable with this plan. 1023: I consulted with Dr. Araiza, the patient's PCP, regarding this patient and the supplemental oxygen. He advises that I consult with the [facility] prior to discharge for further recommendations regarding supplemental oxygen use at night. 1040: Care was coordinated between the medical case manager, Fidelia, and the [facility] as well as with respiratory therapy to provide the patient with the appropriate respiratory support at home. Is my understanding that the patient will have a supplemental oxygen at night and will follow up with [facility] as soon as possible. Patient's troponin is negative and EKG shows no acute ischemic changes. I do not believe the patient needs to be admitted for further evaluation of her mild chest discomfort which happened this morning in the setting of hypoxia, which has been known phenomena. Her D-dimer is slightly elevated, but is appropriate for age adjusted levels. She is already on Eliquis. MDM: Differential diagnosis for the patient's shortness of breath was considered including but not limited to chronic hypoxemia, pulmonary infectious processes, COPD exacerbation, pulmonary emboli, pulmonary edema, congestive heart failure , and cardiac causes. - Data Points Imaging Results: Imaging Impressions Chest X-Ray 05/23/18 07:25 Impression: Stable chest with no acute findings. Imaging: I viewed and interpreted images myself Laboratory Results: Laboratory Results 05/23/18 07:45 05/23/18 07:45 05/23/18 05/23/18 05/23/18 07:46 07:45 07:45 WBC RBC Hgb Hct MCV MCH MCHC RDW Plt Count MPV Neut % (Auto) Lymph % (Auto) Bath % (Auto) Eos % (Auto) Baso % (Auto) Nucleat RBC Rel Count Absolute Neuts (auto) Absolute Lymphs (auto) Absolute Monos (auto) Absolute Eos (auto) Absolute Basos (auto) Absolute Nucleated RBC Immature Gran % Immature Gran # D-Dimer 0.68 ug/mLFEU H ug/mLFEU (0.00-0.50) Sodium 140 mEq/L mEq/L (135-145) Potassium 4.1 mEq/L mEq/L (3.3-5.0) Chloride 106 mEq/L mEq/L (97-110) Carbon Dioxide 26 mEq/l mEq/l (22-31) Anion Gap 8 mEq/L mEq/L (8-16) BUN 14 mg/dL mg/dL (7-23) Creatinine 1.0 mg/dL mg/dL (0.6-1.0) Estimated GFR 53 Glucose 95 mg/dL mg/dL (70-100) Calcium 9.7 mg/dL mg/dL (8.5-10.4) POC Troponin I 0.00 ng/mL ng/mL (0.00-0.08) NT-Pro-B Natriuret Pep 398 pg/mL pg/mL (0-450) 05/23/18 07:45 WBC 7.47 10^3/uL 10^3/uL (3.80-9.50) RBC 5.12 10^6/uL 10^6/uL (4.18-5.33) Hgb 14.4 g/dL g/dL (12.6-16.3) Hct 43.6 % % (38.0-47.0) MCV 85.2 fL fL (81.5-99.8) MCH 28.1 pg pg (27.9-34.1) MCHC 33.0 g/dL g/dL (32.4-36.7) RDW 13.7 % % (11.5-15.2) Plt Count 254 10^3/uL 10^3/uL (150-400) MPV 9.9 fL fL (8.7-11.7) Neut % (Auto) 57.7 % % (39.3-74.2) Lymph % (Auto) 29.0 % % (15.0-45.0) Bath % (Auto) 9.2 % % (4.5-13.0) Eos % (Auto) 3.3 % % (0.6-7.6) Baso % (Auto) 0.4 % % (0.3-1.7) Nucleat RBC Rel Count 0.0 % % (0.0-0.2) Absolute Neuts (auto) 4.30 10^3/uL 10^3/uL (1.70-6.50) Absolute Lymphs (auto) 2.17 10^3/uL 10^3/uL (1.00-3.00) Absolute Monos (auto) 0.69 10^3/uL 10^3/uL (0.30-0.80) Absolute Eos (auto) 0.25 10^3/uL 10^3/uL (0.03-0.40) Absolute Basos (auto) 0.03 10^3/uL 10^3/uL (0.02-0.10) Absolute Nucleated RBC 0.00 10^3/uL 10^3/uL (0-0.01) Immature Gran % 0.4 % % (0.0-1.1) Immature Gran # 0.03 10^3/uL 10^3/uL (0.00-0.10) D-Dimer Sodium Potassium Chloride Carbon Dioxide Anion Gap BUN Creatinine Estimated GFR Glucose Calcium POC Troponin I NT-Pro-B Natriuret Pep Point of Care Test Results: Chemistry 05/23/18 07:46 POC Troponin I 0.00 ng/mL ng/mL (0.00-0.08) General Time Seen by Provider: 05/23/18 07:19 Initial Vital Signs: Initial Vital Signs Temperature (C) 37.2 C 05/23/18 07:11 Heart Rate 67 05/23/18 07:11 Respiratory Rate 16 05/23/18 07:11 Blood Pressure 137/85 H 05/23/18 07:11 O2 Sat (%) 93 05/23/18 07:11 O2 Delivery Mode Nasal Cannula O2 (L/minute) 2 Allergies/Adverse Reactions: Penicillins Allergy (Intermediate, Verified 05/23/18 07:11) Rash Sulfa (Sulfonamide Antibiotics) Allergy (Intermediate, Verified 05/23/18 07:11) Rash Home Medications: Medication Instructions Recorded Apixaban [Eliquis] 5 mg PO BID #60 tab 05/24/17 Ezetimibe [Zetia 10 MG (*)] 10 mg PO HS 05/17/18 Metoprolol Tartrate [Lopressor 50 25 mg PO BID 05/17/18 mg (*)] Acetaminophen [Tylenol 325mg (*)] 650 mg PO Q4 PRN tab 05/19/18 Departure - Departure Disposition: Home, Routine, Self-Care Clinical Impression: Hypoxia Sleep apnea Qualifiers: Sleep apnea type: unspecified type Qualified Code(s): G47.30 - Sleep apnea, unspecified Condition: Good Instructions: Hypoxia (ED) Additional Instructions: Use the supplemental oxygen as prescribed. Follow-up with sleep medicine with your primary care physician as previously directed. Return to the Emergency Department for fever, chest pain, shortness of breath, increasing pain or other worsening of condition. Referrals: Tavares Araiza MD [Primary Care Provider] - As per Instructions Report Scribed for: Jayde Aguirre Report Scribed by: Almaz Nixon Date of Report: 05/23/18 Time of Report: 07:24
[2018-05-23 07:57] LABS: PLATELET COUNT 254 10^3/uL (150-400)
--- NOTE | 2018-05-23 09:17 | PDHOMEO2F ---
Home Oxygen Face to Face Home Orders: I certify that a physician or a nurse practitioner or physician's behavioral modification assistant has had a [id number] encounter with this patient on the date of this order due to the diagnosis listed, which relates to the primary reason the patient requires home oxygen. Alternative treatments have been tried, or considered, and deemed ineffective. It is anticipated that supplemental oxygen will result in improvement with treatment. Home oxygen qualifying diagnosis: hypoxia SpO2 on room air (%): 83 Frequency of home oxygen needed: during sleep Home oxygen liters per minute: 3 Home oxygen delivery device: nasal cannula Concentrator: Yes E-tanks for mobility and back up: Yes If ordering portable O2, is the patient mobile in the home?: Yes I certify that, based on these findings, the home oxygen is medically necessary for this patient for the following length of time. Length of time home oxygen needed: 1 month Home Oxygen Comment: Needs 3 liters while sleeping, needs 1-2 while awake and resting, as o2 sat is 88 percent. Will need further guidance and orders from Dr Araiza
[2018-05-23 12:01] VITALS: BP 156/82
--- NOTE | 2018-05-23 12:45 | ASMTCMCOM ---
CM Note CM Note Notes: Please see ER report for further details I met with patient and her Renan regarding setting up home oxygen therapy. Patient's PCP is Dr. Araiza and patient is being followed at [facility] . I spoke with Sara at [facility] and confirmed that they would be following patient's nightly O2 requirements and the patient's next appointment is scheduled for June 07 at 1:00 PM O2 orders discussed with Ernesto RT. Ernesto was able to set up home delivery of O2 for patient and details were discussed with patient and her prior to discharge home from the ER Date Signed: 05/23/2018 12:44 PM Electronically Signed By:Fidelai Purcell RN
--- NOTE | 2018-05-23 16:10 | CPEKG ---
Test Reason : OPEN Blood Pressure : / mmHG Vent. Rate : 066 BPM Atrial Rate : 066 BPM P-R Int : 158 ms QRS Dur : 077 ms QT Int : 446 ms P-R-T Axes : -08 -15 009 degrees QTc Int : 468 ms Sinus rhythm Inferior infarct, old Confirmed by Jayde Aguirre ([id number]) on 05/23/2018 4:09:48 PM Referred By: Confirmed By:Jayde Aguirre
== END 2018-05-23 12:16 | disposition home or self-care (01) ==
DX: R09.02 Hypoxemia (principal); G47.30 Sleep apnea, unspecified; I25.10 Atherosclerotic heart disease of native coronary artery without angina pectoris; F03.90 Unspecified dementia, unspecified severity, without behavioral disturbance, psychotic disturbance, mood disturbance, and anxiety; I10 Essential (primary) hypertension; Z79.01 Long term (current) use of anticoagulants; Z95.1 Presence of aortocoronary bypass graft; Z86.718 Personal history of other venous thrombosis and embolism
CPT/HCPCS: 84484-PO

== ENCOUNTER 2018-07-07 18:44 | Emergency (ER) | payer BC ==
--- NOTE | 2018-07-07 19:37 | EDPHY ---
HPI/HX/ROS/PE/MDM Narrative: CHIEF COMPLAINT: Shortness of breath HPI: The patient is an anticoagulated (Eliquis) 77 y/o female with a history of stents x 4, CABG, DVT, hypertension, appendectomy, short term memory issues, and sleep apnea complaining of shortness of breath onset today. Per the patient' s the patient's CPAP did not work well last night. Today, he noticed that the patient was more confused and scared as she did not know where she was or what she was doing. She was not eating today and did not know the date; which is abnormal. She did not miss any doses of her medication. Her states that she does have early signs of Alzheimer's. The patient denies feeling confused or any pain currently. She is still mildly short of breath. No fevers, headache, chest pain, vomiting, abdominal pain, urinary or bowel complaints, numbness, paresthesias, REVIEW OF SYSTEMS: Aside from elements discussed in the HPI, a comprehensive 10 system review of systems is otherwise negative. PMH: Stents x 4, CABG, DVT, hypertension, appendectomy, short term memory issues , sleep apnea SOCIAL HISTORY: Lives in [place], at bedside, retired PHYSICAL EXAM: General: Patient is alert, in no acute distress. ENT: Eyes are normal to inspection. ENT inspection normal. Neck: Normal inspection. Full range of motion. Respiratory: No respiratory distress. Breath sounds normal bilaterally. Cardiovascular: Regular rate and rhythm. Strong peripheral pulses. Normal cap refill. Abdomen: The abdomen is nontender to palpation. There are no peritoneal signs. There are normal bowel sounds. Back: Normal to inspection. No tenderness to palpation. Skin: Normal color. No rash. Warm and dry. Extremities: 1-2+ pedal edema bilaterally. Normal appearance. Full range of motion. Neuro: Oriented x3. Normal motor function. Normal sensory function. ED Course: 2016: I reviewed patient's EKG which is unremarkable; laboratory studies still pending. 2039: Reassessed patient and discussed normal EKG and laboratory findings. She remains asymptomatic and is requesting to go home. I have advised her to follow up with a count team member and her PCP. Return precautions provided; patient is comfortable with this plan. MDM: This patient presents with episodes of confusion and shortness of breath. She is asymptomatic and vitals are unremarkable here in the ED. We performed an extensive workup to rule out ACS, PNA, PTX, CHF as possible etiologies, but tests are normal. Patient has a non-focal exam without evidence of CVA, and this episode does not sound like a TIA. The patient has a history of dementia and this sounds like possibly a natural progression of this disease. Patient and family would like to be discharged home. I strongly encouraged them to follow-up with their PCP as outpatient. - Data Points Laboratory Results: Laboratory Results 07/07/18 20:04 07/07/18 20:04 07/07/18 07/07/18 07/07/18 20:09 20:04 20:04 WBC 7.67 10^3/uL 10^3/uL (3.80-9.50) RBC 4.81 10^6/uL 10^6/uL (4.18-5.33) Hgb 13.5 g/dL g/dL (12.6-16.3) Hct 41.2 % % (38.0-47.0) MCV 85.7 fL fL (81.5-99.8) MCH 28.1 pg pg (27.9-34.1) MCHC 32.8 g/dL g/dL (32.4-36.7) RDW 14.1 % % (11.5-15.2) Plt Count 242 10^3/uL 10^3/uL (150-400) MPV 9.9 fL fL (8.7-11.7) Neut % (Auto) 60.0 % % (39.3-74.2) Lymph % (Auto) 26.2 % % (15.0-45.0) Dillon % (Auto) 9.0 % % (4.5-13.0) Eos % (Auto) 4.0 % % (0.6-7.6) Baso % (Auto) 0.5 % % (0.3-1.7) Nucleat RBC Rel Count 0.0 % % (0.0-0.2) Absolute Neuts (auto) 4.60 10^3/uL 10^3/uL (1.70-6.50) Absolute Lymphs (auto) 2.01 10^3/uL 10^3/uL (1.00-3.00) Absolute Monos (auto) 0.69 10^3/uL 10^3/uL (0.30-0.80) Absolute Eos (auto) 0.31 10^3/uL 10^3/uL (0.03-0.40) Absolute Basos (auto) 0.04 10^3/uL 10^3/uL (0.02-0.10) Absolute Nucleated RBC 0.00 10^3/uL 10^3/uL (0-0.01) Immature Gran % 0.3 % % (0.0-1.1) Immature Gran # 0.02 10^3/uL 10^3/uL (0.00-0.10) Sodium 143 mEq/L mEq/L (135-145) Potassium 3.8 mEq/L mEq/L (3.3-5.0) Chloride 110 mEq/L mEq/L (97-110) Carbon Dioxide 24 mEq/l mEq/l (22-31) Anion Gap 9 mEq/L mEq/L (6-14) BUN 14 mg/dL mg/dL (7-23) Creatinine 0.9 mg/dL mg/dL (0.6-1.0) Estimated GFR 60 Glucose 103 mg/dL H mg/dL (70-100) Calcium 9.4 mg/dL mg/dL (8.5-10.4) POC Troponin I 0.00 ng/mL ng/mL (0.00-0.08) Point of Care Test Results: Chemistry 07/07/18 20:09 POC Troponin I 0.00 ng/mL ng/mL (0.00-0.08) General Time Seen by Provider: 07/07/18 19:26 Initial Vital Signs: Initial Vital Signs Temperature (C) 36.7 C 07/07/18 18:54 Heart Rate 67 07/07/18 18:54 Respiratory Rate 18 07/07/18 18:54 Blood Pressure 143/84 H 07/07/18 18:54 O2 Sat (%) 92 07/07/18 18:54 O2 Delivery Mode Room Air Allergies/Adverse Reactions: Penicillins Allergy (Intermediate, Verified 05/23/18 07:11) Rash Sulfa (Sulfonamide Antibiotics) Allergy (Intermediate, Verified 05/23/18 07:11) Rash Home Medications: Medication Instructions Recorded Apixaban [Eliquis] 5 mg PO BID #60 tab 05/24/17 Ezetimibe [Zetia 10 MG (*)] 10 mg PO HS 05/17/18 Metoprolol Tartrate [Lopressor 50 25 mg PO BID 05/17/18 mg (*)] Acetaminophen [Tylenol 325mg (*)] 650 mg PO Q4 PRN tab 05/19/18 Departure - Departure Disposition: Home, Routine, Self-Care Clinical Impression: Confusion Dyspnea Qualifiers: Dyspnea type: unspecified Qualified Code(s): R06.00 - Dyspnea, unspecified Condition: Good Instructions: Shortness of Breath (ED) Additional Instructions: Follow-up with your primary doctor within 72 hours. Return to the Emergency Department for fever, chest pain, shortness of breath, increasing pain or other worsening of condition. Follow up with a count team member for further testing, as soon as possible, within one week. We would be happy to reevaluate you and observe you in the hospital at any time. Referrals: Tavares Araiza MD [Primary Care Provider] - As per Instructions Curtis Sanchez MD [Medical Doctor] - As per Instructions Report Scribed for: Roby Casey Report Scribed by: Almaz Nixon Date of Report: 07/07/18 Time of Report: 19:36 Physician Review and Approval Statement: Portions of this note were transcribed by an ED scribe. I personally performed the history, physical exam, and medical decision making; and confirm the accuracy of the information in the transcribed note.
[2018-07-07 20:15] LABS: PLATELET COUNT 242 10^3/uL (150-400)
[2018-07-07 20:53] VITALS: BP 136/58
--- NOTE | 2018-07-09 15:11 | CPEKG ---
Test Reason : OPEN Blood Pressure : / mmHG Vent. Rate : 063 BPM Atrial Rate : 063 BPM P-R Int : 153 ms QRS Dur : 092 ms QT Int : 456 ms P-R-T Axes : -13 -19 007 degrees QTc Int : 467 ms Sinus rhythm Abnormal R-wave progression, early transition Inferior infarct, old Confirmed by Roby Casey ([id number]) on 07/09/2018 3:11:22 PM Referred By: Confirmed By:Rboy Casey
== END 2018-07-07 20:51 | disposition home or self-care (01) ==
DX: R41.0 Disorientation, unspecified (principal); R06.00 Dyspnea, unspecified; R41.3 Other amnesia; I10 Essential (primary) hypertension; Z79.01 Long term (current) use of anticoagulants; Z95.1 Presence of aortocoronary bypass graft; Z95.5 Presence of coronary angioplasty implant and graft
CPT/HCPCS: 84484-PO

== ENCOUNTER 2018-10-25 12:15 | Emergency (ER) | payer BC ==
--- NOTE | 2018-10-25 14:05 | EDPHY ---
H & P Stated Complaint: black stool last week and today/on eliquis Time Seen by Provider: 10/25/18 13:32 HPI/ROS: CHIEF COMPLAINT: Black stool HISTORY OF PRESENT ILLNESS: 77-year-old female on Eliquis for DVT presents with black stool. 1 episode of black stool this morning, concern for blood. BM normal otherwise, just darker than usual. No associated abdominal pain, vomiting or diarrhea. Similar episode of black stool x 1 episode 1 week ago. No Peptobismol, iron, other new meds or new foods. REVIEW OF SYSTEMS: complete 10 point ROS reviewed and is negative except for the noted elements in the HPI Source: Patient, Family - Personal History Current Tetanus Diphtheria and Acellular Pertussis (TDAP): No Tetanus Vaccine Date: 2003 - Medical/Surgical History Hx Asthma: No Hx Chronic Respiratory Disease: No Hx Diabetes: No Hx Cardiac Disease: Yes Hx Renal Disease: No Hx Cirrhosis: No Hx Alcoholism: No Hx HIV/AIDS: No Hx Splenectomy or Spleen Trauma: No Other PMH: Stents x4 , HTN, CABG-2013, DVT 05/2017, APPY, tonsillectomy, short term memory issues, sleep apnea - Social History Smoking Status: Never smoked Additional Social History: - Physical Exam Exam: General Appearance: Alert, pleasant Eyes: Pupils equal and round, no conjunctival pallor ENT, Mouth: Mucous membranes moist Neck: Normal inspection Respiratory: Lungs are clear to auscultation Cardiovascular: Regular rate and rhythm Gastrointestinal: Abdomen is soft and nontender Rectal: Brown stool present Neurological: A&O, nonfocal, normal gait Skin: Warm and dry Extremities: Normal inspection Psychiatric: Mood and affect normal Constitutional: Initial Vital Signs Temperature (C) 37 C 10/25/18 12:37 Heart Rate 78 10/25/18 12:37 Respiratory Rate 17 10/25/18 12:37 Blood Pressure 131/74 H 10/25/18 12:37 O2 Sat (%) 93 10/25/18 12:37 O2 Delivery Mode Room Air Allergies/Adverse Reactions: Penicillins Allergy (Intermediate, Verified 10/25/18 12:37) Rash Sulfa (Sulfonamide Antibiotics) Allergy (Intermediate, Verified 10/25/18 12:37) Rash Home Medications: Medication Instructions Recorded Apixaban [Eliquis] 5 mg PO BID #60 tab 05/24/17 Ezetimibe [Zetia 10 MG (*)] 10 mg PO HS 05/17/18 Metoprolol Tartrate [Lopressor 50 25 mg PO BID 05/17/18 mg (*)] Acetaminophen [Tylenol 325mg (*)] 650 mg PO Q4 PRN tab 05/19/18 Medical Decision Making - Diagnostics EKG Interpretation: EKG interpreted by me reveals NSR, rate 66, low voltage, abnormal R wave progression. ED Course/Re-evaluation: Stool is negative for occult blood. No evidence for GIB. Likely dietary cause of black stool this morning. CBC initially ordered, but despite multiple IV sticks, staff unable to obtain blood. Since no blood present in stool, CBC canceled. Warning signs discussed. - Data Points Laboratory Results: Laboratory Results 10/25/18 14:29 10/25/18 Unknown Departure - Departure Disposition: Home, Routine, Self-Care Clinical Impression: Black stool Condition: Good Instructions: Additional Information Additional Instructions: Your stool is normal color now. No blood present in your stool sample today. Referrals: Tavares Araiza MD [Primary Care Provider] - 2-3 days, call for appt.
[2018-10-25 14:58] VITALS: BP 155/85
--- NOTE | 2018-10-25 18:32 | CPEKG ---
Test Reason : OPEN Blood Pressure : / mmHG Vent. Rate : 068 BPM Atrial Rate : 066 BPM P-R Int : 144 ms QRS Dur : 090 ms QT Int : 446 ms P-R-T Axes : 027 -19 089 degrees QTc Int : 475 ms Sinus rhythm Borderline left axis deviation Low voltage, precordial leads Abnormal R-wave progression, early transition Confirmed by Gale Mann ([id number]) on 10/25/2018 6:31:59 PM Referred By: Gale Mann Confirmed By:Gale Mann
== END 2018-10-25 15:10 | disposition home or self-care (01) ==
DX: K92.1 Melena (principal); I10 Essential (primary) hypertension; G47.33 Obstructive sleep apnea (adult) (pediatric); Z79.01 Long term (current) use of anticoagulants; Z86.718 Personal history of other venous thrombosis and embolism; Z95.5 Presence of coronary angioplasty implant and graft; Z95.1 Presence of aortocoronary bypass graft; Z88.0 Allergy status to penicillin; Z88.2 Allergy status to sulfonamides

== ENCOUNTER → 2018-11-04 | Outpatient (CLI) | payer BC | LOC: BMCIMAGING 08:04 | PROVIDERS: ATTEND Orthopaedic Surgery | DX: M17.11 Unilateral primary osteoarthritis, right knee (principal) ==